=== PATIENT | male | born 1975 | race Caucasian/White ===

== ENCOUNTER 2016-08-07 08:42 | Emergency (ER) | payer OTHER ==
[2016-08-07 10:45] LABS: ABSOLUTE BASOPHILS # (AUTO) 0.1 10^3/uL (0.0-0.2); ABSOLUTE EOSINOPHILS # (AUTO) 0.3 10^3/uL (0.0-0.6); ABSOLUTE MONOCYTES (AUTO) 0.4 10^3/uL (0.1-1.4); BASOPHILS % (AUTO) 1.4 % (0-2); EOSINOPHILS % (AUTO) 4.2 % (0-6); HEMOGLOBIN 14.4 g/dL (13.5-17.0); HGB HCT DIFFERENCE 0.2; LYMPHOCYTES % (AUTO) 25.8 % (13-45); MEAN CORPUSCULAR HEMOGLOBIN 30.8 pg (27.0-33.4); MEAN CORPUSCULAR HGB CONC 33.5 g/dL (32.0-36.0); MEAN CORPUSCULAR VOLUME 92 fl (80-97); MONOCYTES % (AUTO) 5.5 % (3-13); RED BLOOD COUNT 4.67 10^6/uL (4.35-5.55); SEGMENTED NEUTROPHILS % (AUTO) 63.1 % (42-78); WHITE BLOOD COUNT 7.9 10^3/uL (4.0-10.5)
[2016-08-07 10:53] LABS: PROTHROMBIN TIME 13.4 SEC (11.4-15.4)
[2016-08-07 11:02] LABS: ANION GAP 10 (5-19); BLOOD UREA NITROGEN 20 mg/dL (7-20); CALCIUM 9.4 mg/dL (8.4-10.2); CARBON DIOXIDE 26 mmol/L (22-30); CHLORIDE 105 mmol/L (98-107); CREATININE RESULT 0.95 mg/dL (0.52-1.25); GLUCOSE 91 mg/dL (75-110); POTASSIUM 4.3 mmol/L (3.6-5.0); SODIUM 140.9 mmol/L (137-145)
--- NOTE | 2016-08-07 12:43 | XCELERA REPORT ---
[address] [address] Lower Extremity Venous Evaluation Name: ALESSIO JOHNSON Age: 40 yrs Gender: Male : 1975 Patient Status: Emergency Patient Location: ER Study Date: 08/07/2016 11:44 AM Procedure: Color flow and duplex imaging of the veins of the right lower extremity as well as the left Common Femoral vein. Reason For Study: right leg Ordering Physician: CHRIS RICHARDSON Performed By: Zaina Pagan Right Sided Venous Evaluation Enlarged SSV with no flow. Otherwise normal vessel filling wall to wall, compression and augmentation as well as Colour flow down to the infrageniculate veins. Left Sided Venous Evaluation The left common femoral vein is fully compressible. Spontaneous and phasic flow is present in the left common femoral vein. Critical Findings Celled in to Dr Carpenter in the ER at 1240. Interpretation Summary No duplex evidence of DVT or obstruction in the right lower extremity nor in the left Common Femoral vein. : CHRIS RICHARDSON > Ramez Farley
--- NOTE | 2016-08-07 13:01 | ER Document Report ---
ED General - General Chief Complaint: Leg Pain Stated Complaint: LEG PAIN Time Seen by Provider: 08/07/16 10:13 TRAVEL OUTSIDE OF THE [place] IN LAST 30 DAYS: No - HPI Patient complains to provider of: Right calf pain Notes: Patient is coming in today for evaluation of right calf pain. Patient has a history of DVT in the past and is currently on Pradaxa. Patient states he did just recently undergo a cross-country trip traveling. Patient states pain started approximately 3 days prior to arrival. Pain is in the posterior calf region minimal swelling. Patient denies any other injuries or trauma. - Related Data Allergies/Adverse Reactions: No Known Allergies Allergy (Verified 08/07/16 08:43) Past Medical History - Social History Smoking Status: Current Some Day Smoker Chew tobacco use (# tins/day): No Frequency of alcohol use: Rare Drug Abuse: None Family History: Reviewed & Not Pertinent Patient has suicidal ideation: No Patient has homicidal ideation: No - Past Medical History Cardiac Medical History: Reports: Hx DVT, Hx Pulmonary Embolism Renal/ Medical History: Denies: Hx Peritoneal Dialysis Psychiatric Medical History: Reports: Hx Depression Past Surgical History: Reports: Hx Bowel Surgery Review of Systems - Review of Systems Constitutional: No symptoms reported EENT: No symptoms reported Cardiovascular: No symptoms reported Respiratory: No symptoms reported Gastrointestinal: No symptoms reported Genitourinary: No symptoms reported Male Genitourinary: No symptoms reported Musculoskeletal: Other - Leg pain Skin: No symptoms reported Hematologic/Lymphatic: No symptoms reported Neurological/Psychological: No symptoms reported Physical Exam - Vital signs Vitals: Temp Pulse Resp BP Pulse Ox 98.3 F 60 16 124/75 99 08/07/16 08:43 08/07/16 08:43 08/07/16 08:43 08/07/16 08:43 08/07/16 08:43 Interpretation: Normal - General General appearance: Appears well, Alert - HEENT Head: Normocephalic, Atraumatic Eyes: Normal Pupils: PERRL - Respiratory Respiratory status: No respiratory distress Chest status: Nontender Breath sounds: Normal Chest palpation: Normal - Cardiovascular Rhythm: Regular Heart sounds: Normal auscultation Murmur: No - Abdominal Inspection: Normal Distension: No distension Bowel sounds: Normal Tenderness: Nontender Organomegaly: No organomegaly - Back Back: Normal, Nontender - Extremities General upper extremity: Normal inspection, Nontender, Normal color, Normal ROM , Normal temperature General lower extremity: Normal inspection, Tender - Palpation of the right Middle of the calf. No palpable cords no erythema, Normal color, Normal ROM, Normal temperature, Normal weight bearing. No: Alin's sign - Neurological Neuro grossly intact: Yes Cognition: Normal Orientation: AAOx4 Stacy Coma Scale Eye Opening: Spontaneous Mangum Coma Scale Verbal: Oriented Mangum Coma Scale Motor: Obeys Commands Stacy Coma Scale Total: 15 Speech: Normal Motor strength normal: LUE, RUE, LLE, RLE Sensory: Normal - Psychological Associated symptoms: Normal affect, Normal mood - Skin Skin Temperature: Warm Skin Moisture: Dry Skin Color: Normal Course - Re-evaluation Re-evalutation: 08/07/16 14:37 Ultrasound was performed showing superficial thrombophlebitis. Patient was given follow-up and will be discharged home - Vital Signs Vital signs: Temp Pulse Resp BP Pulse Ox 98.7 F 62 18 122/65 99 08/07/16 13:13 08/07/16 13:13 08/07/16 13:13 08/07/16 13:13 08/07/16 13:13 - Laboratory Result Diagrams: 08/07/16 10:30 08/07/16 10:30 Discharge - Discharge Clinical Impression: Superficial thrombophlebitis Qualifiers: Superficial thrombophlebitis-Involved body area: lower extremity Laterality: right Qualified Code(s): I80.01 - Phlebitis and thrombophlebitis of superficial vessels of right lower extremity Condition: Good Disposition: HOME, SELF-CARE Instructions: Superficial Phlebitis ([facility]) Additional Instructions: Continue your medications as previously prescribed follow-up with your doctor as needed return to the ER for any complications
[2016-08-07 13:14] VITALS: BP 122/65
== END 2016-08-07 13:13 | disposition home or self-care (01) ==
LOC: ER 08:42
DX: I80.01 Phlebitis and thrombophlebitis of superficial vessels of right lower extremity (principal); M79.661 Pain in right lower leg; F17.200 Nicotine dependence, unspecified, uncomplicated; Z86.718 Personal history of other venous thrombosis and embolism; Z86.711 Personal history of pulmonary embolism
CPT/HCPCS: 36415; 80048; 85025; 85610; 85730; 93971; 99284

== ENCOUNTER 2016-11-15 15:53 | Emergency (ER) | payer OTHER, MEDICARE ==
[2016-11-15] MEDS ORDERED: HYDROMORPHONE HCL INJ/PF 2 MG/ML AMPULE IV ONE ×3 (17:37→22:20)
[2016-11-15] MEDS ORDERED: NORMAL SALINE 1000 ML 1,000 ML IV ONE (17:39)
--- NOTE | 2016-11-15 17:44 | ER Document Report ---
ED Medical Screen (RME) - General Chief Complaint: Back Pain Stated Complaint: BACK PAIN Time Seen by Provider: 11/15/16 17:26 Notes: 41-year-old male with a history of chronic back pain presents emergency department for acutely worsening back pain over the past week associated with urinary retention starting this morning and a small amount of fecal incontinence starting last night. He had fever of 101.0 last night as well. Today he states he saw pain management and they prescribed him a steroid taper and ordered an MRI, the MRI was supposed to be at 4 PM this afternoon however he missed it due to having so much pain that he could not walk. Also complains that he is having numbness in his toes and weakness in his thighs due to pain. TRAVEL OUTSIDE OF THE [place] IN LAST 30 DAYS: No - Related Data Allergies/Adverse Reactions: No Known Allergies Allergy (Verified 08/07/16 08:43) Past Medical History - Social History Cigarette use (# per day): No Frequency of alcohol use: None Drug Abuse: None - Past Medical History Cardiac Medical History: Reports: Hx DVT, Hx Pulmonary Embolism Renal/ Medical History: Denies: Hx Peritoneal Dialysis Psychiatric Medical History: Reports: Hx Depression Past Surgical History: Reports: Hx Abdominal Surgery - hernia repair, Hx Bowel Surgery Physical Exam - Vital signs Vitals: Temp Pulse Resp BP Pulse Ox 98.6 F 129 H 22 H 118/79 98 11/15/16 16:21 11/15/16 16:21 11/15/16 16:21 11/15/16 16:21 11/15/16 16:21 Interpretation: Tachycardic, Tachypneic - Notes Notes: Appears uncomfortable, 5 out of 5 great toe raising strength bilaterally, sensation intact to the toes, tender to palpation over L2 and L3 in the midline , also has paraspinal muscle spasm. Course - Re-evaluation Re-evalutation: 11/15/16 17:44 Ordered stat MRI of the lumbar spine with and without as I am concerned for possible epidural abscess causing cauda equina. Discussed with TOMY Agarwal, he is aware of the potential diagnosis. - Vital Signs Vital signs: Temp Pulse Resp BP Pulse Ox 98.6 F 129 H 18 118/79 98 11/15/16 16:21 11/15/16 16:21 11/15/16 17:23 11/15/16 16:21 11/15/16 16:21
[2016-11-15 18:11] LABS: ABSOLUTE BASOPHILS # (AUTO) 0.1 10^3/uL (0.0-0.2); ABSOLUTE EOSINOPHILS # (AUTO) 0.1 10^3/uL (0.0-0.6); ABSOLUTE LYMPHOCYTES (AUTO) 0.9 10^3/uL (0.5-4.7); ABSOLUTE MONOCYTES (AUTO) 0.8 10^3/uL (0.1-1.4); ABSOLUTE NEUT (AUTO) 12.9 10^3/uL (1.7-8.2); BASOPHILS % (AUTO) 0.4 % (0-2); EOSINOPHILS % (AUTO) 0.5 % (0-6); HEMATOCRIT 43.1 % (37.9-51.0); HEMOGLOBIN 14.9 g/dL (13.5-17.0); HGB HCT DIFFERENCE 1.6; LYMPHOCYTES % (AUTO) 5.8 % (13-45); MEAN CORPUSCULAR HEMOGLOBIN 31.3 pg (27.0-33.4); MEAN CORPUSCULAR HGB CONC 34.5 g/dL (32.0-36.0); MEAN CORPUSCULAR VOLUME 91 fl (80-97); MONOCYTES % (AUTO) 5.1 % (3-13); RED BLOOD COUNT 4.75 10^6/uL (4.35-5.55); RED CELL DISTRIBUTION WIDTH 12.3 % (11.5-14.0); SEGMENTED NEUTROPHILS % (AUTO) 88.2 % (42-78); WHITE BLOOD COUNT 14.6 10^3/uL (4.0-10.5)
[2016-11-15 18:21] LABS: APPEARANCE,URINE SLIGHTLY-CLOUDY; BILIRUBIN,URINE NEGATIVE (NEGATIVE); GLUCOSE, URINE NEGATIVE (NEGATIVE); KETONES,URINE TRACE mg/dL (NEGATIVE); LEUKOCYTE ESTERASE,URINE NEGATIVE (NEGATIVE); NITRITE,URINE NEGATIVE (NEGATIVE); PROTEIN,URINE 100 mg/dL (NEGATIVE); URINE SPECIFIC GRAVITY 1.035
[2016-11-15 18:36] LABS: ALANINE AMINOTRANSFERASE 19 U/L (21-72); ALBUMIN 4.9 g/dL (3.5-5.0); ALKALINE PHOSPHATASE 99 U/L (38-126); ANION GAP 13 (5-19); ASPARTATE AMINO TRANSFERASE 26 U/L (17-59); BILIRUBIN,DIRECT 0.5 mg/dL (0.0-0.4); BLOOD UREA NITROGEN 20 mg/dL (7-20); CARBON DIOXIDE 27 mmol/L (22-30); CHLORIDE 100 mmol/L (98-107); CREATININE RESULT 1.01 mg/dL (0.52-1.25); GLUCOSE 137 mg/dL (75-110); POTASSIUM 4.5 mmol/L (3.6-5.0); SODIUM 139.8 mmol/L (137-145)
[2016-11-15 18:54] LABS: ERYTHROCYTE SEDIMENTATION RATE 38 mm/hr (0-15)
[2016-11-15 18:56] LABS: C-REACTIVE PROTEIN 161.3 mg/L (<10.0)
[2016-11-15] MEDS ORDERED: ONDANSETRON HCL INJ/PF 4 MG/2 ML SDV IV ONE (19:42)
--- NOTE | 2016-11-15 19:43 | ER Document Report ---
ED Neck/Back Problem - General Chief Complaint: Back Pain Stated Complaint: BACK PAIN Time Seen by Provider: 11/15/16 17:26 TRAVEL OUTSIDE OF THE [place] IN LAST 30 DAYS: No - Related Data Allergies/Adverse Reactions: No Known Allergies Allergy (Verified 08/07/16 08:43) Past Medical History - Social History Smoking Status: Former Smoker Cigarette use (# per day): No Frequency of alcohol use: None Drug Abuse: None Family History: Reviewed & Not Pertinent - Past Medical History Cardiac Medical History: Reports: Hx DVT, Hx Pulmonary Embolism Renal/ Medical History: Denies: Hx Peritoneal Dialysis Psychiatric Medical History: Reports: Hx Depression Past Surgical History: Reports: Hx Abdominal Surgery - hernia repair, Hx Bowel Surgery Physical Exam - Vital signs Vitals: Temp Pulse Resp BP Pulse Ox 98.6 F 129 H 22 H 118/79 98 11/15/16 16:21 11/15/16 16:21 11/15/16 16:21 11/15/16 16:21 11/15/16 16:21 Course - Re-evaluation Re-evalutation: 11/16/16 00:11 Patient is a 41-year-old male who is hemodynamic stable, no acute distress afebrile. Given patient's history of back pain with increased in severity today and referral from his pain management for an acute MRI one was ordered from triage. Please see full radiology report regarding findings. Does show evidence of severe degenerative changes MRI shows evidence of herniated disc at L4-L5, moderate to severe disc disease L5-S1 without evidence of spinal canal stenosis. Evidence of S1-S2 bulging disc with severe bilateral foraminal narrowing. Without evidence of spinal canal stenosis, cauda equina, epidural abscess without evidence of spinal canal stenosis, cauda equina, epidural abscess. After pain medication administration. Patient has been able to ambulate in the department with intact repeat neurological exams. Strength is 5 out of 5 bilateral lower extremities with sensation intact in all nerve distributions. The patient presents with low back pain without signs of spinal cord compression , cauda equina syndrome, infection, aneurysm, or other serious etiology. The patient is neurologically intact. Given the extremely low risk of these diagnoses further testing and evaluation for these possibilities does not appear to be indicated at this time. The patient has been instructed to return if the symptoms worsen or change in any way. - Vital Signs Vital signs: Temp Pulse Resp BP Pulse Ox 99.1 F 95 16 131/82 H 95 11/16/16 00:46 11/16/16 00:46 11/16/16 00:46 11/16/16 00:46 11/16/16 00:46 - Laboratory Result Diagrams: 11/15/16 17:50 11/15/16 17:50 Laboratory results interpreted by me: 11/15/16 11/15/16 11/15/16 17:50 17:50 17:50 WBC 14.6 H Seg Neutrophils % 88.2 H Lymphocytes % 5.8 L Absolute Neutrophils 12.9 H ESR 38 H Glucose 137 H Total Bilirubin 2.0 H Direct Bilirubin 0.5 H ALT 19 L C-Reactive Protein 161.3 H Total Protein 9.0 H Urine Protein 100 H Urine Ketones TRACE H Urine Blood MODERATE H Urine Urobilinogen 4.0 H - Diagnostic Test Radiology reviewed: Reports reviewed Discharge - Discharge 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 Most commonly the pain is due to straining of the muscles and ligaments in the low back. Usual treatment includes: (1) Rest on a firm surface. Avoid lying on your stomach. (2) Ice pack the painful area. After a few days, gentle heat may be used intermittently to relax the area, or ice packs can be continued. (3) Medication may be needed -- muscle relaxers and antiinflammatory medicines are commonly used. (4) As the back improves, exercises are prescribed to strengthen the back and abdominal muscles. Your doctor will advise you on the proper care for your back at each stage in your recovery. You may be better in a few days -- or healing may take several weeks. If new symptoms of a "herniated disc" (radiation of pain, numbness, or tingling down the back of the leg or weakness in the leg) occur, you should be re-examined. Further testing may be necessary. PAIN MEDICATION INJECTION: You have received an injection of a pain medication. You should experience significant pain relief within 45 minutes. If this injection was a narcotic -- it will impair your judgement, slow your reaction time and make you sleepy (as well as relieve your pain). Narcotics also can cause nausea. You should not drive, work with machinery, or perform any task requiring mental alertness until all effects of the medication are gone -- six to eight hours. Do not take any alcohol, or sedatives, and do not take any other medication without checking with your physician. ORAL NARCOTIC MEDICATION: You have been given a prescription for pain control. This medication is a narcotic. It's best taken with food, as nausea can result if taken on an empty stomach. Don't operate machinery or drive within six hours of taking this medication. Do not combine this medicine with alcohol, or with any medication which can cause sedation (such as cold tablets or sleeping pills) unless you get permission from the physician. Narcotics tend to cause constipation. If possible, drink plenty of fluids and eat a diet high in fiber and fruits. Please be aware that prescription narcotics also have the potential for abuse. People become addicted to these medications because of the general sense of wellbeing that they induce. This feeling along with a significant reduction in tension, anxiety, and aggression provides a stimulating seductive quality to these drugs. Once your pain is under control, we encourage you to discard your unused narcotics. MUSCLE RELAXERS: Muscle relaxing medications are usually prescribed for acute muscle spasm or injury to the neck and back. They are often combined with antiinflammatory pain medication for increased relief. You may stop the muscle relaxer when the pain and stiffness have improved. Start the medication again if spasms recur. Muscle relaxers may cause drowsiness, especially with the first dose. Do not operate machinery or drive while under the effects of the medication. Most muscle relaxers last up to 24 hours. Do not combine the medication with alcohol. ICE PACKS: Apply ice packs frequently against the painful area. Many different schedules are recommended, such as "20 minutes on, 20 minutes off" or "one hour ice, two hours rest." If you need to work, you may need to go longer between ice treatments. You should plan to have the area ice packed AT LEAST one fourth of the time. The ice should be applied over the wrap, tape, or splint, or over a layer of cloth -- not directly against the skin. Some ice bags have a built-in cloth and can be put directly on the skin. WARM PACKS: After approximately two days, apply gentle heat (such as a heating pad or hot water bottle) for about 20 to 30 minutes about every two hours -- at least four times daily. Warmth and elevation will help you make a more rapid recovery , and will ease the pain considerably. Do not use HOT heat, and never apply heat for longer than 30 minutes. The continuous heat can invisibly damage skin and muscles -- even when no burn is seen on the surface. Damaged muscles can make you MORE sore. FOLLOW-UP CARE: If you have been referred to a physician for follow-up care, call the physician s office for an appointment as you were instructed or within the next two days. If you experience worsening or a significant change in your symptoms, notify the physician immediately or return to the Emergency Department at any time for re-evaluation. Prescriptions: Oxycodone HCl/Acetaminophen [Percocet 10-325 Mg Tablet] 1 each PO Q6HP PRN #15 tablet PRN Reason: Cyclobenzaprine HCl [Flexeril 10 mg Tablet] 10 mg PO TIDP PRN #15 tab PRN Reason: Referrals: ROCIO BECERRA MD [Primary Care Provider] - Follow up as needed BERNIE BROWN MD [ACTIVE STAFF] - 11/18/16
--- NOTE | 2016-11-15 23:29 | RADIOLOGY REPORT (SQ) ---
EXAM DESCRIPTION: MRI THORACIC SPINE COMBO COMPLETED DATE/TIME: 11/15/2016 10:02 pm REASON FOR STUDY: urinary retent, fecal incont, fever COMPARISON: None. TECHNIQUE: Sagittal and Axial imaging includes T1, T2, STIR and gradient echo sequences. T1 post ga dolinium sequences. CONTRAST TYPE AND DOSE: 20 mL mL gadolinium base contrast. RENAL FUNCTION: None required. The patient is less than 50 years old. LIMITATIONS: None. FINDINGS: LOCALIZER: No worrisome findings. ALIGNMENT: Normal. VERTEBRAE: Intact. BONE MARROW: Normal. No marrow replacement or reactive changes. HARDWARE: None in the spine. CORD: Normal in size and signal intensity. SOFT TISSUES: No soft tissue masses. THORACIC DISCS T1-T12: Small central disc osteophyte T7-T8. No significant spinal stenosis or exit f oraminal stenosis. LOWER CERVICAL: Incompletely imaged. No significant spinal stenosis or exit foraminal stenosis. UPPER LUMBAR: Incompletely imaged. No significant spinal stenosis or exit foraminal stenosis. ENHANCEMENT: No abnormal enhancement. OTHER: No other significant finding. IMPRESSION: MILD DEGENERATIVE DISC DISEASE T7-T8 WITHOUT SIGNIFICANT SPINAL CANAL STENOSIS OR NEURAL FORAMINAL NARROWING. OTHERWISE UNREMARKABLE THORACIC SPINE MRI WITH AND WITHOUT CONTRAST. TECHNICAL DOCUMENTATION: JOB ID: [id number] [employer]- All Rights Reserved
--- NOTE | 2016-11-15 23:35 | RADIOLOGY REPORT (SQ) ---
EXAM DESCRIPTION: MRI LUMBAR SPINE COMBO COMPLETED DATE/TIME: 11/15/2016 10:02 pm REASON FOR STUDY: fever, urine retent, fecal incont, back pain COMPARISON: CORRELATION MADE TO CT FROM 10/27/2013 TECHNIQUE: Sagittal and Axial imaging includes T1, T1 post gadolinium, T2, STIR and gradient echo se quences. Coronal T2/HASTE imaging. CONTRAST TYPE AND DOSE: 20 ML mL NO ANY IN BASE CONTRAST RENAL FUNCTION: None required. The patient is less than 50 years old. LIMITATIONS: None. FINDINGS: VISUALIZED UPPER ABDOMEN: Limited evaluation. No acute or suspicious findings suggested. SEGMENTATION: THERE ARE 6 LUMBAR TYPE VERTEBRAL BODIES SECONDARY TO LUMBARIZATION OF THE S1 LEVEL. T HE LOWEST DEVELOPED DISC SPACE FOR THE PURPOSE OF THIS REPORT WILL BE REFERRED TO S1-S2. ALIGNMENT: Stable degree of anterolisthesis of S1 on S2. Alignment is otherwise normal VERTEBRAE: Intact. No fractures. BONE MARROW: Mild acute on chronic emboli changed S1-S2. Marrow signal is otherwise grossly normal. DISC SIGNAL: Disc desiccation L4-L5, L5-S1, and S1-S2. POSTERIOR ELEMENTS: Generally intact. No pars defect evident. HARDWARE: None in the spine. CORD AND CONUS: Normal in size and signal intensity. Conus at the appropriate level. SOFT TISSUES: No aortic aneurysm seen. No bulky retroperitoneal adenopathy or mass. No paraspinal mas s or fluid. L1-L2: No significant spinal stenosis or exit foraminal stenosis. L2-L3: No significant spinal stenosis or exit foraminal stenosis. L3-L4: No significant spinal stenosis or exit foraminal stenosis. L4-L5: Mild broad-based disc bulging and right-sided ligamentum flavum hypertrophy resulting in minim al effacement of the ventral thecal sac. No significant neural foraminal narrowing. L5-S1: Moderate to severe disc desiccation with broad-based bulging and superimposed central protrusi on which appears to contact of the bilateral and transiting S1 nerve roots within the subarticular re cess. There is additional mild bilateral neural foraminal narrowing. No high-grade spinal canal francia nosis. S1-S2: Severe disc desiccation with broad-based disc bulging. There is severe bilateral neural fora honey narrowing with impingement of the exiting S1 nerve roots. SACRUM: Visualized upper sacrum intact. ENHANCEMENT: No abnormal enhancement. OTHER: No other significant findings. IMPRESSION: DEGENERATIVE CHANGE DESCRIBED ABOVE MOST SEVERE AT THE L5-S1 AND S1-S2 LEVELS WITH GR JORGE 1 ANTEROLISTHESIS OF S1 ON S2 RESULTING IN SEVERE BILATERAL NEURAL FORAMINAL NARROWING AND IMPING EMENT OF THE EXITING S1 NERVE ROOTS. NO HIGH-GRADE SPINAL CANAL STENOSIS IDENTIFIED. TECHNICAL DOCUMENTATION: JOB ID: [id number] [employer]- All Rights Reserved
[2016-11-16] MEDS ORDERED: CYCLOBENZAPRINE HCL 10 MG TABLET PO ONE (00:11)
[2016-11-16] MEDS ORDERED: METHYLPREDNISOLONE INJ 125 MG/2 ML SDV IV ONE (00:11)
[2016-11-16] MEDS ORDERED: HYDROMORPHONE HCL INJ/PF 2 MG/ML AMPULE IV ONE (00:11)
[2016-11-16 01:02] VITALS: BP 131/82
== END 2016-11-16 01:03 | disposition home or self-care (01) ==
LOC: ER 15:53
DX: M47.816 Spondylosis without myelopathy or radiculopathy, lumbar region (principal); M51.26 Other intervertebral disc displacement, lumbar region; Z87.891 Personal history of nicotine dependence; Z86.711 Personal history of pulmonary embolism; Z86.718 Personal history of other venous thrombosis and embolism
CPT/HCPCS: 96376; 99284; 96361; 96374; 96375; 36415; 85025; 85652; 86140; 80053; 81001; 83605; 72157; 72158; A9577; J2930; J1170 ×2; J2405; J7030

== ENCOUNTER 2016-11-17 11:31 | Emergency (ER) | payer OTHER, MEDICARE ==
--- NOTE | 2016-11-17 12:03 | ER Document Report ---
ED Medical Screen (RME) - General Chief Complaint: Low Back Pain Stated Complaint: LOW BACK PAIN Time Seen by Provider: 11/17/16 11:50 Mode of Arrival: Wheelchair Information source: Patient TRAVEL OUTSIDE OF THE [place] IN LAST 30 DAYS: No - HPI Patient complains to provider of: Low back pain, lower extremity swelling Notes: 11/17/16 12:02 Patient is a 41-year-old male with a history of chronic low back pain, was seen in this department approximately 2 days ago and had MRIs of the thoracic and lumbar spine showing multilevel degenerative changes, over the past few days his pain is gotten worse with pain shooting down both legs, he is also having increased swelling in both legs, patient reports a history of DVT and is currently on Pradaxa - Related Data Allergies/Adverse Reactions: No Known Allergies Allergy (Verified 11/17/16 11:39) Past Medical History - Social History Chew tobacco use (# tins/day): No Frequency of alcohol use: None Drug Abuse: None - Past Medical History Cardiac Medical History: Reports: Hx DVT, Hx Pulmonary Embolism Renal/ Medical History: Denies: Hx Peritoneal Dialysis Psychiatric Medical History: Reports: Hx Depression Past Surgical History: Reports: Hx Abdominal Surgery - hernia repair, Hx Bowel Surgery - Immunizations Hx Diphtheria, Pertussis, Tetanus Vaccination: Yes Physical Exam - Vital signs Vitals: Pulse Resp BP Pulse Ox 106 H 16 145/97 H 97 11/17/16 11:39 11/17/16 11:39 11/17/16 11:39 11/17/16 11:39 Course - Vital Signs Vital signs: Temp Pulse Resp BP Pulse Ox 106 H 16 145/97 H 97 11/17/16 11:39 11/17/16 11:39 11/17/16 11:39 11/17/16 11:39
[2016-11-17 12:30] LABS: ABSOLUTE BASOPHILS # (AUTO) 0.1 10^3/uL (0.0-0.2); ABSOLUTE EOSINOPHILS # (AUTO) 0.1 10^3/uL (0.0-0.6); ABSOLUTE LYMPHOCYTES (AUTO) 1.5 10^3/uL (0.5-4.7); ABSOLUTE MONOCYTES (AUTO) 1.2 10^3/uL (0.1-1.4); ABSOLUTE NEUT (AUTO) 15.7 10^3/uL (1.7-8.2); BASOPHILS % (AUTO) 0.3 % (0-2); EOSINOPHILS % (AUTO) 0.5 % (0-6); HEMATOCRIT 38.7 % (37.9-51.0); HEMOGLOBIN 13.8 g/dL (13.5-17.0); HGB HCT DIFFERENCE 2.7; LYMPHOCYTES % (AUTO) 8.2 % (13-45); MEAN CORPUSCULAR HEMOGLOBIN 31.8 pg (27.0-33.4); MEAN CORPUSCULAR HGB CONC 35.6 g/dL (32.0-36.0); MEAN CORPUSCULAR VOLUME 89 fl (80-97); MONOCYTES % (AUTO) 6.7 % (3-13); RED BLOOD COUNT 4.33 10^6/uL (4.35-5.55); RED CELL DISTRIBUTION WIDTH 12.5 % (11.5-14.0); SEGMENTED NEUTROPHILS % (AUTO) 84.3 % (42-78); WHITE BLOOD COUNT 18.6 10^3/uL (4.0-10.5)
[2016-11-17 12:35] LABS: PROTHROMBIN TIME 17.5 SEC (11.4-15.4)
[2016-11-17 12:36] LABS: PARTIAL THROMBOPLASTIN TIME 46.3 SEC (23.5-35.8)
[2016-11-17 12:46] LABS: ALANINE AMINOTRANSFERASE 37 U/L (21-72); ALBUMIN 4.5 g/dL (3.5-5.0); ALKALINE PHOSPHATASE 77 U/L (38-126); ANION GAP 13 (5-19); ASPARTATE AMINO TRANSFERASE 21 U/L (17-59); BILIRUBIN,DIRECT 0.5 mg/dL (0.0-0.4); BILIRUBIN,TOTAL 0.8 mg/dL (0.2-1.3); BLOOD UREA NITROGEN 31 mg/dL (7-20); CALCIUM 9.7 mg/dL (8.4-10.2); CARBON DIOXIDE 24 mmol/L (22-30); CHLORIDE 101 mmol/L (98-107); GLUCOSE 120 mg/dL (75-110); POTASSIUM 4.1 mmol/L (3.6-5.0); SODIUM 137.9 mmol/L (137-145)
--- NOTE | 2016-11-17 13:10 | ER Document Report ---
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 Patient has a long history of back pain and states that he started having a fever last week (on Friday, 4 days ago). He started taking his own amoxicillin at home. He presented 2 days ago with worsening back pain and numbness to the lower extremities. He had an MRI of the thoracic and lumbar spine with and without contrast that showed severe degenerative changes, without any evidence of epidural abscess. 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 Past surgical history: Bowel obstruction, hernia with mesh, IVC filter. Social: Patient did smoke cigarettes up to 1-1/2 weeks ago TRAVEL OUTSIDE OF THE [place] IN LAST 30 DAYS: No - HPI Onset: Last week Onset/Duration: Gradual Quality of pain: Dull Severity: Moderate Pain Level: 3 Associated symptoms: Fever. denies: Chills, Shortness of breath Exacerbated by: Movement Relieved by: Denies Similar symptoms previously: Yes Recently seen / treated by doctor: Yes - Related Data Allergies/Adverse Reactions: No Known Allergies Allergy (Verified 11/17/16 11:39) Past Medical History - General Information source: Patient - Social History Smoking Status: Current Some Day Smoker Chew tobacco use (# tins/day): No Frequency of alcohol use: None Drug Abuse: None Family History: Reviewed & Not Pertinent Patient has suicidal ideation: No Patient has homicidal ideation: No - Past Medical History Cardiac Medical History: Reports: Hx DVT, Hx Pulmonary Embolism Renal/ Medical History: Denies: Hx Peritoneal Dialysis Psychiatric Medical History: Reports: Hx Depression Past Surgical History: Reports: Hx Abdominal Surgery - hernia repair, Hx Bowel Surgery - Immunizations Hx Diphtheria, Pertussis, Tetanus Vaccination: Yes Review of Systems - Review of Systems Constitutional: Fever EENT: No symptoms reported Cardiovascular: See HPI Respiratory: No symptoms reported Gastrointestinal: No symptoms reported Genitourinary: No symptoms reported Male Genitourinary: No symptoms reported Musculoskeletal: See HPI Skin: See HPI Hematologic/Lymphatic: No symptoms reported Neurological/Psychological: No symptoms reported Physical Exam - Vital signs Vitals: Pulse Resp BP Pulse Ox 106 H 16 145/97 H 97 11/17/16 11:39 11/17/16 11:39 11/17/16 11:39 11/17/16 11:39 Notes: Physical exam: GENERAL: 41-year-old man, alert and oriented 3, appears uncomfortable HEAD: Atraumatic, normocephalic. EYES: Pupils equal round and reactive to light, extraocular movements intact, sclera anicteric, conjunctiva are normal. ENT: oropharynx clear without exudates. Moist mucous membranes. NECK: Normal range of motion, supple without obvious mass or JVD. LUNGS: Breath sounds clear to auscultation bilaterally and equal. No wheezes rales or rhonchi. HEART: Regular rate and rhythm without murmurs, rubs or gallops. ABDOMEN: Soft, normoactive bowel sounds. No tenderness to palpation. No guarding, no rebound. No masses appreciated. EXTREMITIES: Patient has swelling to both lower extremities which involves the whole extremity. The skin is tense. The extremities are symmetric. There is A refill. There is a hue to the lower extremities to suggest venous engorgement. He does have palpable pulses. NEUROLOGICAL: Cranial nerves II through XII grossly intact. Normal speech, moving all extremities. Patient has a broad-based gait: He says it is uncomfortable when he tries to walk. PSYCH: Normal mood, normal affect. SKIN: As noted above under the extremity exam. Course - Re-evaluation Re-evalutation: 11/17/16 15:39 I initially discussed the case with Dr. Johnson to review the MRI from 2 days ago. She was able to see that the patient had an IVC clot on the MRI. At that point, IV heparin was ordered. Lower extremity Dopplers do show bilateral DVTs. The DVT on the right extends from the common femoral and the groin into the femoral and ends just above the right knee. The DVT on the left extends from the common femoral and the groin through the femoral and into popliteal. CT of the abdomen shows that the clot extends into the IVC and above the IVC filter and ends just below the renal veins. So the clot burden is extensive. I discussed the case with Dr. sadler (interventional radiologist) who recommended catheter ablated thrombo-lysis which he does perform at [facility]. I have contacted [facility] about the possibility of transfer. Currently, the patient is hemodynamically stable and is on IV heparin at this time. Spot checks of his arteries revealed good arterial supply to the lower extremities bilaterally. 11/17/16 19:03 I have discussed management with [facility] casting finisher who recommends transfer to a larger institution given the extent of clot. I did discuss the case with Dr. Rios ([facility] surg) at [facility] and he is willing to accept the patient but there are no beds. I discussed the case with Dr. Fleming ([facility] ) at [facility] and I presented the case to [facility] and both these facilities are willing to accept the patient. [facility] is willing to have the patient go ER to ER and evaluate the patient in the ER. It is not clear whether [facility] has a bed at this time. I discussed the issue with the patient and his family and they would prefer to go to [facility]. The patient continues on IV heparin and his vital signs have been stable. - Vital Signs Vital signs: Temp Pulse Resp BP Pulse Ox 106 H 20 131/90 H 94 11/17/16 11:39 11/17/16 18:01 11/17/16 18:01 11/17/16 18:01 - Laboratory Result Diagrams: 11/17/16 12:16 11/17/16 12:16 Laboratory results interpreted by me: 11/17/16 11/17/16 11/17/16 12:16 12:16 12:16 WBC 18.6 H RBC 4.33 L Seg Neutrophils % 84.3 H Lymphocytes % 8.2 L Absolute Neutrophils 15.7 H PT 17.5 H APTT 46.3 H BUN 31 H Glucose 120 H Direct Bilirubin 0.5 H Urine Blood 11/17/16 15:50 WBC RBC Seg Neutrophils % Lymphocytes % Absolute Neutrophils PT APTT BUN Glucose Direct Bilirubin Urine Blood MODERATE H - Diagnostic Test Radiology reviewed: Image reviewed, Reports reviewed - The lower extremity Dopplers showed bilateral DVTs extending from common femoral to just above the knee on the right. The left side showed a common femoral DVT extending down beyond the popliteal. Critical Care Note - Critical Care Note Total time excluding time spent on procedures (mins): 110 Discharge - Discharge Clinical Impression: Extensive DVT Condition: Serious Disposition: [facility]
[2016-11-17] MEDS ORDERED: MORPHINE SULFATE 10 MG/ML INJ IV ONE (13:15)
[2016-11-17] MEDS ORDERED: ONDANSETRON HCL INJ/PF 4 MG/2 ML SDV IV ONE (13:16)
[2016-11-17] MEDS ORDERED: HEPARIN SOD (PORCINE) 1,000 UNIT/ML 10 ML VIAL IV PRN (13:24)
[2016-11-17] MEDS ORDERED: HEPARIN SOD (PORCINE) 1,000 UNIT/ML 10 ML VIAL IV ONE (13:24)
[2016-11-17] MEDS ORDERED: HEPARIN SODIUM,PORCINE/D5W 25,000 UNIT/250 ML RTUINJ IV PRN (14:09)
[2016-11-17] MEDS ORDERED: HEPARIN SODIUM,PORCINE/D5W 25,000 UNIT/250 ML RTUINJ IV ONE (14:15)
--- NOTE | 2016-11-17 15:31 | RADIOLOGY REPORT (SQ) ---
EXAM DESCRIPTION: CT ABD/PELVIS WITH IV ONLY COMPLETED DATE/TIME: 11/17/2016 2:44 pm REASON FOR STUDY: abd pain COMPARISON: MRI lumbar spine 11/15/2016 TECHNIQUE: CT scan of the abdomen and pelvis performed using helical scanning technique with dynamic intravenous contrast injection. No oral contrast. Images reviewed with lung, soft tissue, and bone windows. Reconstructed coronal and sagittal MPR images reviewed. Delayed images for evaluation of the urinary system also acquired. All images stored on PACS. All CT scanners at this facility use dose modulation, iterative reconstruction, and/or weight based d osing when appropriate to reduce radiation dose to as low as reasonably achievable (ALARA). [facility]: Dose Right [facility]: CareDose [facility]: Dose Right [facility]: Teradose 4D [facility]: [employer] CONTRAST TYPE AND DOSE: contrast/concentration: Isovue 370.00 mg/ml; Total Contrast Delivered: 99.0 ml; Total Saline Delivered: 54.0 ml RENAL FUNCTION: Creatinine 1.0 RADIATION DOSE: Up-to-date CT equipment and radiation dose reduction techniques were employed. CTDIv ol: 15.1 - 20.0 mGy. DLP: 1985 mGy-cm.. LIMITATIONS: None. FINDINGS: There is occlusive thrombosis of the bilateral common femoral, external iliac, common missael c veins, with occlusive thrombus in the inferior vena cava. Patient does have any infrarenal IVC helder ter which is filled with clot. Clot extends superior to the filter by 7 cm, up to the level of the r enal veins. Renal veins, upper abdominal vena cava, hepatic vena cava patent. These findings were discussed with Dr. Castorena. LOWER CHEST: Bibasilar atelectasis is present. LIVER: Normal size. No masses. No dilated ducts. SPLEEN: Normal size. No focal lesions. PANCREAS: No masses. No significant calcifications. No adjacent inflammation or peripancreatic fluid collections. Pancreatic duct not dilated. GALLBLADDER: No identified stones by CT criteria. No inflammatory changes to suggest cholecystitis. ADRENAL GLANDS: No significant masses or asymmetry. RIGHT KIDNEY AND URETER: No solid masses. No significant calcifications. No hydronephrosis or hyd roureter. LEFT KIDNEY AND URETER: No solid masses. No significant calcifications. No hydronephrosis or hydr oureter. AORTA AND VESSELS: As above. RETROPERITONEUM: There is edema in the deep pelvic fat in the presacral region, likely due to the IVC thrombosis. BOWEL AND PERITONEAL CAVITY: No masses or inflammatory changes. No free fluid or peritoneal masses. APPENDIX: Normal. PELVIS: No mass. No free fluid. Normal bladder. ABDOMINAL WALL: No masses. No hernias. BONES: No significant or acute findings. OTHER: No other significant finding. IMPRESSION: Occlusive thrombosis of the bilateral common femoral, external iliac, common iliac veins , and inferior vena cava. Clot extends superior to the inferior vena cava filter by about 7 cm, up t o the level of the renal veins. No renal vein thrombosis. TECHNICAL DOCUMENTATION: JOB ID: [id number] Quality ID # [id number]: Final reports with documentation of one or more dose reduction techniques (e.g., Au tomated exposure control, adjustment of the mA and/or kV according to patient size, use of iterative reconstruction technique) 2010 [employer]- All Rights Reserved
[2016-11-17 16:15] LABS: APPEARANCE,URINE CLEAR; BILIRUBIN,URINE NEGATIVE (NEGATIVE); GLUCOSE, URINE NEGATIVE (NEGATIVE); KETONES,URINE NEGATIVE (NEGATIVE); LEUKOCYTE ESTERASE,URINE NEGATIVE (NEGATIVE); NITRITE,URINE NEGATIVE (NEGATIVE); PROTEIN,URINE NEGATIVE (NEGATIVE); URINE SPECIFIC GRAVITY 1.041; UROBILINOGEN,URINE NEGATIVE mg/dL (<2.0)
[2016-11-17 16:28] LABS: WBC,URINE 0-1 /HPF
[2016-11-17] MEDS ORDERED: MORPHINE SULFATE 10 MG/ML INJ IV PRN (17:05)
[2016-11-17] MEDS ORDERED: NICOTINE 14 MG/24 HR PATCH.TD24 TD ONE (17:06)
[2016-11-17 18:12] VITALS: BP 131/90
[2016-11-17] MEDS ORDERED: ALPRAZOLAM 0.5 MG TABLET PO ONE (18:59)
--- NOTE | 2016-11-18 08:06 | XCELERA REPORT ---
[address] [address] Lower Extremity Venous Evaluation Name: ALESSIO JOHNSON Age: 41 yrs Gender: Male : 1975 Patient Status: Emergency Patient Location: ER Study Date: 11/17/2016 01:52 PM Procedure: Color flow and duplex imaging bilaterally of the veins of the lower extremities as well as the Common Femoral veins. Reason For Study: BL LE swelling/pain Ordering Physician: JENI WILSON Performed By: Mynor Ortiz Right Sided Venous Evaluation Abnormal vessel filling, enlargement, no compression or Colour flow in the Common Femoral, Femoral veins. Left Sided Venous Evaluation Abnormal vessel filling, enlargement, no compression or Colour flow in the Common Femoral, Femoral, Popliteal, and one of two Posterior Tibial veins. Critical Findings Discussed with Dr Castorena, particularly possibility of proximal involvement. Interpretation Summary Bilateral, acute, quite extensive DVT. : JENI WILSON > Ramez Farley
== END 2016-11-17 19:42 | disposition short-term general hospital (02) ==
LOC: ER 11:31
DX: I82.413 Acute embolism and thrombosis of femoral vein, bilateral (principal); I10 Essential (primary) hypertension; M54.5 Low back pain; R10.2 Pelvic and perineal pain; M79.89 Other specified soft tissue disorders; R50.9 Fever, unspecified; F17.200 Nicotine dependence, unspecified, uncomplicated; Z86.718 Personal history of other venous thrombosis and embolism; Z79.02 Long term (current) use of antithrombotics/antiplatelets
CPT/HCPCS: 99291; 99292; 96374; 96375; 36415; 85025; 85610; 85730; 80053; 81001; 93970 ×2; 74177; J1644 ×2; J2270; J2405

== ENCOUNTER 2016-12-02 10:46 | Emergency (ER) | payer OTHER, MEDICARE ==
--- NOTE | 2016-12-02 11:28 | ER Document Report ---
ED Medical Screen (RME) - General Chief Complaint: Leg Pain Stated Complaint: LEG PAIN/SWELLING Time Seen by Provider: 12/02/16 11:27 Notes: Patient has a history of DVTs. He has IVC filter. He recently had 2 stents placed in each lower extremity because of extensive DVTs. He is currently on Lovenox and warfarin. He comes in now because he is having some pain in his left leg, is having trouble walking, and he felt that there is discoloration. On my exam patient has a 2+ dorsalis pedis pulse on the left. TRAVEL OUTSIDE OF THE [place] IN LAST 30 DAYS: No - Related Data Allergies/Adverse Reactions: No Known Allergies Allergy (Verified 12/02/16 10:50) Past Medical History - Social History Chew tobacco use (# tins/day): No Frequency of alcohol use: None Drug Abuse: None - Past Medical History Cardiac Medical History: Reports: Hx DVT, Hx Pulmonary Embolism Renal/ Medical History: Denies: Hx Peritoneal Dialysis Psychiatric Medical History: Reports: Hx Depression Past Surgical History: Reports: Hx Abdominal Surgery - hernia repair, Hx Bowel Surgery, Hx Vascular Surgery - stents tristan legs r/t DVT - Immunizations Hx Diphtheria, Pertussis, Tetanus Vaccination: Yes Physical Exam - Vital signs Vitals: Resp 18 12/02/16 10:50 Course - Vital Signs Vital signs: Temp Pulse Resp BP Pulse Ox 98.2 F 83 18 120/82 99 12/02/16 10:53 12/02/16 10:53 12/02/16 10:50 12/02/16 10:53 12/02/16 10:53
[2016-12-02 12:13] LABS: PROTHROMBIN TIME 15.4 SEC (11.4-15.4)
--- NOTE | 2016-12-02 13:27 | ER Document Report ---
ED General - General Mode of Arrival: Ambulatory Information source: Patient TRAVEL OUTSIDE OF THE [place] IN LAST 30 DAYS: No - HPI Onset: Other - see narrative Similar symptoms previously: Yes Recently seen / treated by doctor: Yes - General Chief Complaint: Leg Pain Stated Complaint: LEG PAIN/SWELLING Time Seen by Provider: 12/02/16 11:27 Notes: Patient is a 41-year-old male who presents to the emergency department today with complaints of left calf pain and subjective swelling. Patient has a history of multiple DVTs in the past. Patient was admitted to [facility] 1.5 weeks ago secondary to bilateral DVTs. Patient developed these DVTs despite being on Pradaxa. Patient was started on Lovenox and Coumadin with the idea that the Lovenox would be stopped once the Coumadin reached therapeutic levels. Patient was subtherapeutic at 1.1 at his checkup one week ago so he was told to take 10 mg of Coumadin the next 2 days and then go back to his daily 5 mg Coumadin. Patient states he gets mildly nauseated with the pain. Patient denies any chest pain or shortness of breath. Patient states his right lower extremity is not causing him any pain. (LINDA RIVERA) - Related Data Allergies/Adverse Reactions: No Known Allergies Allergy (Verified 12/02/16 10:50) Past Medical History - General Information source: Patient - Social History Smoking Status: Never Smoker Cigarette use (# per day): No Chew tobacco use (# tins/day): No Frequency of alcohol use: None Drug Abuse: None Lives with: Family Family History: Reviewed & Not Pertinent Patient has suicidal ideation: No - Past Medical History Cardiac Medical History: Reports: Hx DVT, Hx Pulmonary Embolism Psychiatric Medical History: Reports: Hx Depression Past Surgical History: Reports: Hx Abdominal Surgery - hernia repair, Hx Bowel Surgery, Hx Vascular Surgery - stents tristan legs r/t DVT - Immunizations Hx Diphtheria, Pertussis, Tetanus Vaccination: Yes Review of Systems - Review of Systems Constitutional: See HPI, Other - Subtherapeutic INR EENT: No symptoms reported Cardiovascular: denies: Chest pain Respiratory: denies: Short of breath Gastrointestinal: No symptoms reported Genitourinary: No symptoms reported Male Genitourinary: No symptoms reported Musculoskeletal: See HPI, Other - Left calf pain and subjective swelling Skin: No symptoms reported Hematologic/Lymphatic: No symptoms reported Neurological/Psychological: No symptoms reported -: Yes All other systems reviewed and negative Physical Exam - Vital signs Vitals: Resp 18 12/02/16 10:50 - Notes Notes: Physical Exam: General: Alert, appears well. HEENT: Normocephalic. Atraumatic. PERRL. Extraocular movements intact. Oropharynx clear. Neck: Supple. Non-tender. Respiratory: No respiratory distress. Clear and equal breath sounds bilaterally. Cardiovascular: Regular rate and rhythm. Abdominal: Normal Inspection. Non-tender. No distension. Normal Bowel Sounds. Back: Non-tender. No deformity or step off. Extremities: Moves all four extremities. Upper extremities: Normal inspection. Normal ROM. Lower extremities: Normal inspection. Calves are symmetric in size, no calf tenderness with palpation. No edema. Normal ROM. Neurological: Normal cognition. AAOx4. Normal speech. Psychological: Normal affect. Normal Mood. Skin: Warm. Dry. Normal color. (LINDA RIVERA) Course - Re-evaluation Re-evalutation: 12/02/16 13:28 Pleasant 41-year-old male with a history of a coagulopathy, DVTs. He was recently treated at [facility] and was discharged on Lovenox as well as 5 mg of Coumadin. He was rechecked recently and had an INR of 1.1. The physician who is caring for him then increased his Coumadin dose to 10 for 2 days and then resuming 5. Today he presents emergency department because of discomfort to the left leg and his INR is noted to be 1.14. I have counseled the patient to increase his Coumadin dose to 7.5 mg once per day and to follow-up with his physician at the [facility] this or Friday for reevaluation. Patient otherwise appears well. He has no chest pain or shortness of breath. No indication for repeat ultrasound at this time. Patient agrees and understands. (LUIS FERNANDO ROBERTO) - Vital Signs Vital signs: Temp Pulse Resp BP Pulse Ox 97.3 F 65 18 112/66 100 12/02/16 14:09 12/02/16 14:09 12/02/16 10:50 12/02/16 14:09 12/02/16 14:09 Discharge - Discharge Clinical Impression: Anticoagulant long-term use DVT (deep venous thrombosis) Qualifiers: DVT location: lower extremity Affected thrombotic vein of extremity: unspecified vein of extremity Chronicity: chronic Laterality: bilateral Qualified Code(s): I82.503 - Chronic embolism and thrombosis of unspecified deep veins of lower extremity, bilateral Condition: Good Disposition: HOME, SELF-CARE Instructions: Coumadin (warfarin) ([facility]) Additional Instructions: Your INR today is 1.14. You are taking 5 mg of Coumadin currently. Increase this to to 7.5 mg once per day. We discussed the importance of reevaluation in 3-5 days. Please follow-up with your doctors at the [facility] for this. Continue your Lovenox until we know you are therapeutic with Coumadin. Return to the emergency department if you have worsening pain, if you develop chest pain or shortness of breath, or if you have other urgent concerns. Lorenzo Attestation: 12/02/16 19:37 I personally performed the services described in the documentation, reviewed and edited the documentation which was dictated to the scribe in my presence, and it accurately records my words and actions. (LUIS FERNANDO ROBERTO) Gabrielaibe Documentation - Scribe Written by Lorenzo:: Lorenzo Cleveland, 12/02/2016 1358 acting as scribe for :: Angel
[2016-12-02 14:18] VITALS: BP 112/66
== END 2016-12-02 14:17 | disposition home or self-care (01) ==
LOC: ER 10:46
DX: I82.503 Chronic embolism and thrombosis of unspecified deep veins of lower extremity, bilateral (principal); M79.605 Pain in left leg; M79.89 Other specified soft tissue disorders; Z79.01 Long term (current) use of anticoagulants
CPT/HCPCS: 36415; 85610; 99283

== ENCOUNTER 2017-08-18 14:27 | Emergency (ER) | payer OTHER, MEDICARE ==
[2017-08-18 14:54] VITALS: BP 133/86
--- NOTE | 2017-08-18 15:28 | RADIOLOGY REPORT (SQ) ---
EXAM DESCRIPTION: HAND RIGHT 3 VIEWS COMPLETED DATE/TIME: 08/18/2017 2:46 pm REASON FOR STUDY: stung by sting ray COMPARISON: None. EXAM PARAMETERS: NUMBER OF VIEWS: Three views. TECHNIQUE: AP, lateral and oblique radiographic images acquired of the right hand. LIMITATIONS: None. FINDINGS: MINERALIZATION: Normal. BONES: No acute fracture or dislocation. No worrisome bone lesions. JOINTS: No effusions. SOFT TISSUES: Soft tissue swelling. No radiopaque foreign body. OTHER: No other significant finding. IMPRESSION: NEGATIVE STUDY OF THE RIGHT HAND. NO RADIOGRAPHIC EVIDENCE OF ACUTE INJURY. TECHNICAL DOCUMENTATION: JOB ID: [id number] [employer]- All Rights Reserved Reading location - IP/workstation name: [email or web address]
[2017-08-18] MEDS ORDERED: IBUPROFEN 800 MG TABLET PO ONE (16:17)
[2017-08-18] MEDS ORDERED: DIPH/PERTUSS(ACELL)/TETANUS VAC/PF 0.5 ML SYR (>=10YO) IM ONE (17:01)
--- NOTE | 2017-08-18 17:07 | ER Document Report ---
ED General - General Chief Complaint: Hand Injury Stated Complaint: HAND INJURY Time Seen by Provider: 08/18/17 16:07 Mode of Arrival: Ambulatory Information source: Patient Notes: 41-year-old male presents with stingray injury to the right hand just prior to arrival. Patient denies any other complaints denies any fevers chills TRAVEL OUTSIDE OF THE [place] IN LAST 30 DAYS: No - HPI Onset: Just prior to arrival Onset/Duration: Sudden Quality of pain: Sharp Severity: Moderate Pain Level: 3 Associated symptoms: Other Exacerbated by: Movement Relieved by: Denies Similar symptoms previously: No Recently seen / treated by doctor: No - Related Data Allergies/Adverse Reactions: No Known Allergies Allergy (Verified 12/20/16 12:02) Past Medical History - Social History Smoking Status: Current Every Day Smoker Cigarette use (# per day): Yes Chew tobacco use (# tins/day): No Smoking Education Provided: No Frequency of alcohol use: None Drug Abuse: None Family History: Reviewed & Not Pertinent Patient has suicidal ideation: No Patient has homicidal ideation: No - Past Medical History Cardiac Medical History: Reports: Hx DVT, Hx Pulmonary Embolism Renal/ Medical History: Denies: Hx Peritoneal Dialysis Psychiatric Medical History: Reports: Hx Depression Past Surgical History: Reports: Hx Abdominal Surgery - hernia repair, Hx Bowel Surgery, Hx Vascular Surgery - stents tristan legs r/t DVT - Immunizations Hx Diphtheria, Pertussis, Tetanus Vaccination: Yes Review of Systems - Review of Systems Notes: REVIEW OF SYSTEMS: CONSTITUTIONAL : Denies fever, chills, or sweats. Denies recent illness. EENT: Denies eye, ear, throat, or mouth pain or symptoms. Denies nasal or sinus congestion or discharge. Denies throat, tongue, or mouth swelling or difficulty swallowing. CARDIOVASCULAR: Denies chest pain. Denies palpitations or racing or irregular heart beat. Denies ankle edema. RESPIRATORY: Denies cough, cold, or chest congestion. Denies shortness of breath, difficulty breathing, or wheezing. GASTROINTESTINAL: Denies abdominal pain or distention. Denies nausea, vomiting , or diarrhea. Denies blood in vomitus, stools, or per rectum. Denies black, tarry stools. Denies constipation. GENITOURINARY: Denies difficulty urinating, painful urination, burning, frequency, blood in urine, or discharge. MUSCULOSKELETAL: Denies back or neck pain or stiffness. Denies joint pain or swelling. SKIN: Admits to puncture wound to the hand HEMATOLOGIC : Denies easy bruising or bleeding. LYMPHATIC: Denies swollen, enlarged glands. NEUROLOGICAL: Denies confusion or altered mental status. Denies passing out or loss of consciousness. Denies dizziness or lightheadedness. Denies headache. Denies weakness or paralysis or loss of use of either side. Denies problems with gait or speech. Denies sensory loss, numbness, or tingling. Denies seizures. PSYCHIATRIC: Denies anxiety or stress. Denies depression, suicidal ideation, or homicidal ideation. ALL OTHER SYSTEMS REVIEWED AND NEGATIVE. Dictation was performed using [employer] voice recognition software PHYSICAL EXAMINATION: GENERAL: Well-appearing, well-nourished and in moderate acute distress. HEAD: Atraumatic, normocephalic. EYES: Pupils equal round and reactive to light, extraocular movements intact, sclera anicteric, conjunctiva are normal. ENT: Nares patent, oropharynx clear without exudates. Moist mucous membranes. NECK: Normal range of motion, supple without lymphadenopathy LUNGS: Breath sounds clear to auscultation bilaterally and equal. No wheezes rales or rhonchi. HEART: Regular rate and rhythm without murmurs ABDOMEN: Soft, nontender, nondistended abdomen. No guarding, no rebound. No masses appreciated. Musculoskeletal: Normal range of motion, no pitting or edema. No cyanosis. NEUROLOGICAL: Cranial nerves grossly intact. Normal speech, normal gait. Normal sensory, motor exams PSYCH: Normal mood, normal affect. SKIN: Jagged W-shaped laceration measuring 1 cm on the dorsal right hand at the base of the fifth digit Physical Exam - Vital signs Vitals: Temp Pulse Resp BP 97.7 F 89 18 133/86 H 08/18/17 14:52 08/18/17 14:52 08/18/17 14:52 08/18/17 14:52 Course - Re-evaluation Re-evalutation: 08/18/17 18:32 Patient has full range of motion looks well was immediately placed inhot water, notes improvement of symptoms, pt notes he twisted his ankle running away from the sting ray. pt denies any other concerns will dc home After performing a Medical Screening Examination, I estimate there is LOW risk for OPEN FRACTURE, COMPARTMENT SYNDROME, TENDON RUPTURE, ACUTE NEUROVASCULAR INJURY, or RETAINED FOREIGN BODY, thus I consider the discharge disposition reasonable. Also, there is no evidence or peritonitis, sepsis, or toxicity. I have reevaluated this patient multiple times and no significant life threatening changes are noted. The patient and I have discussed the diagnosis and risks, and we agree with discharging home with close follow-up with the understanding that symptoms and presentations can change. We also discussed returning to the Emergency Department immediately if new or worsening symptoms occur. We have discussed the symptoms which are most concerning (e.g., changing or worsening pain, fever, numbness, weakness, cool or painful digits) that necessitate immediate return. - Vital Signs Vital signs: Temp Pulse Resp BP Pulse Ox 97.7 F 89 18 133/86 H 08/18/17 14:52 08/18/17 14:52 08/18/17 14:52 08/18/17 14:52 Discharge - Discharge Clinical Impression: Contact with stingray as cause of accidental injury Condition: Stable Disposition: HOME, SELF-CARE Instructions: [facility] ([facility]) Referrals: ROCIO BECERRA MD [Primary Care Provider] - Follow up as needed OSCAR NESBITT DO [ACTIVE STAFF] - Follow up in 3-5 days
--- NOTE | 2017-08-18 17:51 | RADIOLOGY REPORT (SQ) ---
EXAM DESCRIPTION: FOOT RIGHT COMPLETE COMPLETED DATE/TIME: 08/18/2017 4:15 pm REASON FOR STUDY: foot pain from fall COMPARISON: None. NUMBER OF VIEWS: Three views. TECHNIQUE: AP, lateral and oblique radiographic images acquired of the right foot. LIMITATIONS: None. FINDINGS: MINERALIZATION: Normal. BONES: Possible fracture base of the seconds metatarsal. There is widening of the seconds metatarsal 1st cuneiform space suggests a Lisfranc injury. JOINTS: No effusions. SOFT TISSUES: No soft tissue swelling. No foreign body. OTHER: No other significant finding. IMPRESSION: Possible fracture proximal seconds metatarsal. Question tear of the Lisfranc ligament. TECHNICAL DOCUMENTATION: JOB ID: [id number] [employer]- All Rights Reserved Reading location - IP/workstation name: [email or web address]
== END 2017-08-18 17:24 | disposition home or self-care (01) ==
LOC: ER 14:27
DX: T63.511A Toxic effect of contact with stingray, accidental (unintentional), initial encounter (principal)
CPT/HCPCS: 90471; 90715; 99283

== ENCOUNTER 2018-03-13 15:38 | Emergency (ER) | payer OTHER, MEDICARE ==
[2018-03-13] MEDS ORDERED: HYDROCODONE/ACETAMINOPHEN 5-325 MG TABLET PO ONE (16:09)
[2018-03-13 16:34] LABS: ABSOLUTE BASOPHILS # (AUTO) 0.1 10^3/uL (0.0-0.2); ABSOLUTE EOSINOPHILS # (AUTO) 0.2 10^3/uL (0.0-0.6); ABSOLUTE LYMPHOCYTES (AUTO) 1.8 10^3/uL (0.5-4.7); ABSOLUTE MONOCYTES (AUTO) 0.5 10^3/uL (0.1-1.4); ABSOLUTE NEUT (AUTO) 5.1 10^3/uL (1.7-8.2); EOSINOPHILS % (AUTO) 2.9 % (0-6); HEMATOCRIT 43.7 % (37.9-51.0); HEMOGLOBIN 15.1 g/dL (13.5-17.0); LYMPHOCYTES % (AUTO) 23.9 % (13-45); MEAN CORPUSCULAR HEMOGLOBIN 32.7 pg (27.0-33.4); MEAN CORPUSCULAR HGB CONC 34.5 g/dL (32.0-36.0); MEAN CORPUSCULAR VOLUME 95 fl (80-97); PLATELET COUNT 333 10^3/uL (150-450); RED BLOOD COUNT 4.61 10^6/uL (4.35-5.55); RED CELL DISTRIBUTION WIDTH 13.2 % (11.5-14.0); SEGMENTED NEUTROPHILS % (AUTO) 66.2 % (42-78); TOTAL CELLS COUNTED % (AUTO) 100 %; WHITE BLOOD COUNT 7.7 10^3/uL (4.0-10.5)
[2018-03-13 16:40] LABS: INTERNATIONAL RATION (INR) 1.05; PROTHROMBIN TIME 14.3 SEC (11.4-15.4)
[2018-03-13 17:13] LABS: ALANINE AMINOTRANSFERASE 35 U/L (21-72); ALBUMIN 4.8 g/dL (3.5-5.0); ALKALINE PHOSPHATASE 61 U/L (38-126); ANION GAP 9 (5-19); ASPARTATE AMINO TRANSFERASE 31 U/L (17-59); BILIRUBIN,DIRECT 0.2 mg/dL (0.0-0.4); BILIRUBIN,TOTAL 0.3 mg/dL (0.2-1.3); BLOOD UREA NITROGEN 12 mg/dL (7-20); CALCIUM 9.8 mg/dL (8.4-10.2); CARBON DIOXIDE 27 mmol/L (22-30); CHLORIDE 104 mmol/L (98-107); GLUCOSE 88 mg/dL (75-110); POTASSIUM 4.7 mmol/L (3.6-5.0); SODIUM 139.6 mmol/L (137-145)
--- NOTE | 2018-03-13 17:38 | RADIOLOGY REPORT (SQ) ---
EXAM DESCRIPTION: VENOUS UNILATERAL LOWER COMPLETED DATE/TIME: 03/13/2018 5:28 pm REASON FOR STUDY: left leg swelling, h/o prior massive DVT COMPARISON: 08/07/2016 TECHNIQUE: Dynamic and static conrad scale and color images acquired of the left leg venous system. Se lected spectral images acquired with additional compression and augmentation maneuvers. The contralat eral common femoral vein and saphenofemoral junction were also imaged. Images stored on PACS. LIMITATIONS: None. FINDINGS: COMMON FEMORAL: Normal phasicity, compression and augmentation. No visualized echogenic ma terial on conrad scale. No defects on color images. FEMORAL: Normal compression and augmentation. No visualized echogenic material on conrad scale. No defe cts on color images. POPLITEAL: Normal compression, augmentation. No visualized echogenic material on conrad scale. No defec ts on color images. CALF VESSELS: Normal compression, augmentation. No visualized echogenic material on conrad scale. No de fects on color images. GSV and SSV: Normal compression, augmentation. No visualized echogenic material on conrad scale. No def ects on color images. ANY DEEP VENOUS INSUFFICIENCY: Not evaluated. ANY EVIDENCE OF POPLITEAL CYST: No. OTHER: Slow flow. Waveforms raise the issue of more proximal DVT in the iliac vein. CONTRALATERAL COMMON FEMORAL VEIN AND SAPHENOFEMORAL JUNCTION: Normal phasicity, compression and augmentation. No visualized echogenic material on conrad scale. No de fects on color images. IMPRESSION: No DVT or SVT is seen in the left lower extremity, but there are findings raising the is kaiser of a more proximal DVT. TECHNICAL DOCUMENTATION: JOB ID: [id number] [employer]- All Rights Reserved Reading location - IP/workstation name: [email or web address]
--- NOTE | 2018-03-13 18:47 | ER Document Report ---
Entered by LINDA RIVERA SCRIBE 03/13/18 1614 Acting as scribe for:CHRISSIE DOMÍNGUEZ DO ED Medical Screen (RME) - General Chief Complaint: Leg Swelling Stated Complaint: LEG SWELLING Time Seen by Provider: 03/13/18 16:04 Primary Care Provider: ROCIO BECERRA MD [Primary Care Provider] - Follow up as needed Notes: 42-year-old male with history of DVT on warfarin presents to the emergency depar tment today with complaints of left lower extremity swelling and pain. Patient states his symptoms today are consistent with his previous DVT which was approximately 1 year ago. Patient states this DVT was of unknown etiology and he denies any history of clotting disorders. Patient does mention that about 3 weeks ago he flew to [place] but that is his only immobilization that he can remember. Of note, the patient's warfarin was checked a few days ago and he reports his INR was 1.4 cm and so he was increased to 7.5 mg a day. I have greeted and performed a rapid initial assessment of this patient. A comprehensive ED assessment and evaluation of the patient, analysis of test results, and completion of the medical decision making process will be conducted by additional ED providers. Review of systems: Constitutional: No symptoms reported EENT: No symptoms reported Cardiovascular: No symptoms reported Respiratory: No symptoms reported Gastrointestinal: No symptoms reported Genitourinary: No symptoms reported Musculoskeletal: Left lower extremity swelling and pain. Skin: No symptoms reported Hematologic/Lymphatic: No symptoms reported Neurological/Psychological: No symptoms reported Yes All other systems reviewed and negative PHYSICAL EXAM GENERAL: Alert, interacts well. No acute distress. HEAD: Normocephalic, atraumatic. EYES: Pupils equal, round, and reactive to light. Extraocular movements intact. ENT: Oral mucosa moist, tongue midline. NECK: Full range of motion. Supple. Trachea midline. LUNGS: No respiratory distress. EXTREMITIES: Trace pitting edema to the left lower extremity. Tenderness with compression of the left calf. Wearing a compression stocking on the left leg. NEUROLOGICAL: Alert and oriented x3. Normal speech. PSYCH: Normal affect, normal mood. SKIN: Warm and dry. TRAVEL OUTSIDE OF THE [place] IN LAST 30 DAYS: No - Related Data Allergies/Adverse Reactions: No Known Allergies Allergy (Verified 03/13/18 15:40) Past Medical History - Past Medical History Cardiac Medical History: Reports: Hx DVT, Hx Pulmonary Embolism Renal/ Medical History: Denies: Hx Peritoneal Dialysis Psychiatric Medical History: Reports: Hx Depression Past Surgical History: Reports: Hx Abdominal Surgery - hernia repair, Hx Bowel Surgery, Hx Vascular Surgery - stents tristan legs r/t DVT - Immunizations Hx Diphtheria, Pertussis, Tetanus Vaccination: Yes Physical Exam - Vital signs Vitals: Temp Pulse Resp BP Pulse Ox 98.3 F 82 16 132/101 H 100 03/13/18 15:54 03/13/18 15:54 03/13/18 15:54 03/13/18 15:54 03/13/18 15:54 Course - Vital Signs Vital signs: Temp Pulse Resp BP Pulse Ox 98.3 F 82 16 132/101 H 100 03/13/18 15:54 03/13/18 15:54 03/13/18 15:54 03/13/18 15:54 03/13/18 15:54 - Laboratory Result Diagrams: 03/13/18 16:22 03/13/18 16:22 Doctor's Discharge - Discharge Referrals: ROCIO BECERRA MD [Primary Care Provider] - Follow up as needed I personally performed the services described in the documentation, reviewed and edited the documentation which was dictated to the scribe in my presence, and it accurately records my words and actions.
--- NOTE | 2018-03-13 19:45 | RADIOLOGY REPORT (SQ) ---
EXAM DESCRIPTION: CT PELVIS WITH COMPLETED DATE/TIME: 03/13/2018 7:18 pm REASON FOR STUDY: CONCERN FOR PELVIC DVT, LEFT SIDED, VENOGRAM REQUESTED COMPARISON: None. EXAM PARAMETERS: TECHNIQUE: CT scan of the body and lower extremities performed with and without int ravenous contrast using helical scanning technique with dynamic intravenous contrast injection. Image s reviewed with lung, soft tissue, and bone windows. Reconstructed coronal and sagittal MPR images re viewed. All images stored on PACS. Advanced 3D imaging as volume-rendering, MIPs, SSD performed? yes All CT scanners at this facility use dose modulation, iterative reconstruction, and/or weight based d osing when appropriate to reduce radiation dose to as low as reasonably achievable (ALARA). [facility]: Dose Right [facility]: SureCare [facility]: Dose Right [facility]: Teradose 4D [facility]: Wantful CONTRAST TYPE AND DOSE: 75mL Omnipaque 350- low osmolar. RENAL FUNCTION: BUN 12 creatinine 0.98 RADIATION DOSE: CT Rad equipment meets quality standard of care and radiation dose reduction techniqu es were employed. CTDIvol: 7.6 - 83.1 mGy. DLP: 694 mGy-cm. mGy. LIMITATIONS: None. FINDINGS: Imaging is performed in the pelvis an effort to rule out left iliac vein thrombosis. Bila teral iliac vein stents are seen. The left iliac vein enhances less than the right iliac vein. The findings are not absolutely definitive, but are suggestive of left iliac thrombosis. Otherwise, included portions of the bowel are unremarkable. Urinary bladder is normal. No pelvic ma sses or fluid collections are seen. The osseous structures are normal. IMPRESSION: Cannot exclude thrombosis in the left iliac vein. Bilateral iliac veins stents are pres ent. TECHNICAL DOCUMENTATION: JOB ID: [id number] [facility] [id number]: Final reports with documentation of one or more dose reduction techniques (e.g., Automate d exposure control, adjustment of the mA and/or kV according to patient size, use of iterative recons truction technique) 2010 [employer]- All Rights Reserved Reading location - IP/workstation name: [email or web address]
--- NOTE | 2018-03-13 21:42 | ER Document Report ---
ED General - General Chief Complaint: Leg Swelling Stated Complaint: LEG SWELLING Time Seen by Provider: 03/13/18 16:04 Primary Care Provider: ROCIO BECERRA MD [NO LOCAL MD] - Follow up as needed Notes: Patient is a 42-year-old male with history of DVT on warfarin presents to the emergency department today with complaints of left lower extremity swelling and pain. Patient states his symptoms today are consistent with his previous DVT which was approximately 1 year ago. Patient states this DVT was of unknown niki ology and he denies any history of clotting disorders. Patient does mention that about 3 weeks ago he flew to [place] but that is his only immobilization that he can remember. Of note, the patient's warfarin was checked a few days ago and he reports his INR was 1.4 cm and so he was increased to 7.5 mg a day. He does describe the pain in his left lower cavity as being a dull, throbbing, aching pain. Worsened by walking or touching the leg. Nothing improves the pain. Has not yet contacted his primary care doctor regarding today's concerns. Of note, he is not currently on Lovenox despite having a low INR. TRAVEL OUTSIDE OF THE [place] IN LAST 30 DAYS: No - Related Data Allergies/Adverse Reactions: No Known Allergies Allergy (Verified 03/13/18 15:40) Past Medical History - General Information source: Patient - Social History Smoking Status: Never Smoker Frequency of alcohol use: None Drug Abuse: None Lives with: Spouse/Significant other Family History: Reviewed & Not Pertinent Patient has suicidal ideation: No Patient has homicidal ideation: No - Past Medical History Cardiac Medical History: Reports: Hx DVT, Hx Pulmonary Embolism Renal/ Medical History: Denies: Hx Peritoneal Dialysis Psychiatric Medical History: Reports: Hx Depression Past Surgical History: Reports: Hx Abdominal Surgery - hernia repair, Hx Bowel Surgery, Hx Vascular Surgery - stents tristan legs r/t DVT - Immunizations Hx Diphtheria, Pertussis, Tetanus Vaccination: Yes Review of Systems - Review of Systems Notes: Constitutional: Negative for fever. HENT: Negative for sore throat. Eyes: Negative for visual changes. Cardiovascular: Negative for chest pain. Respiratory: Negative for shortness of breath. Gastrointestinal: Negative for abdominal pain, vomiting or diarrhea. Genitourinary: Negative for dysuria. Musculoskeletal: Positive for left lower extremity swelling and pain Skin: Negative for rash. Neurological: Negative for headaches, weakness or numbness. 10 point ROS negative except as marked above and in HPI. Physical Exam - Vital signs Vitals: Temp Pulse Resp BP Pulse Ox 98.3 F 82 16 132/101 H 100 03/13/18 15:54 03/13/18 15:54 03/13/18 15:54 03/13/18 15:54 03/13/18 15:54 Interpretation: Normal Notes: PHYSICAL EXAMINATION: GENERAL: Well-appearing, well-nourished and in no acute distress. HEAD: Atraumatic, normocephalic. EYES: Pupils equal round and reactive to light, extraocular movements intact, sclera anicteric, conjunctiva are normal. ENT: nares patent, oropharynx clear without exudates. Moist mucous membranes. NECK: Normal range of motion, supple without lymphadenopathy LUNGS: Breath sounds clear to auscultation bilaterally and equal. No wheezes rales or rhonchi. HEART: Regular rate and rhythm without murmurs, 2+ DP pulses bilaterally ABDOMEN: Soft, nontender, normoactive bowel sounds. No guarding, no rebound. No masses appreciated. EXTREMITIES: Normal range of motion, 1-2+ pitting edema in the left lower extremity with mild discoloration throughout particular below the level of the knee. NEUROLOGICAL: No focal neurological deficits. Moves all extremities spontaneou sly and on command. PSYCH: Normal mood, normal affect. SKIN: Warm, Dry, normal turgor, no rashes or lesions noted. Course - Re-evaluation Re-evalutation: 03/13/18 21:44 Patient presents with 12 hours of progressive worsening left lower extremity swelling and pain. The patient had a venous Doppler of the left lower extremity which did not reveal any blood clots although did show findings consistent with a higher level occlusion. CT of the pelvis was obtained and shows non- excludable occlusion to the left iliac. Given patient's exam which does show obvious edema to the left lower extremity, 2+ relative to a normal right lower extremity as well as the patient's pain and report that this feels identical to previous occlusions he has had in the past as well as a non-therapeutic INR I do suspect that the iliac occlusion is likely present. The patient will be bridged on Lovenox, will follow up with his second rigger. No indication for hospitalization at this time. 2+ DP pulses bilaterally. Pain is easily controlled without any interventions. At this time will discharge with return precautions and follow-up recommendations. Verbal discharge instructions given a the bedside and opportunity for questions given. Medication warnings reviewed. Patient is in agreement with this plan and has verbalized understanding of return precautions and the need for primary care follow-up in the next 24-72 hours. 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 The ultrasound of your leg does not show any blood clot but the CAT scan of your pelvis does appear to show a likely blockage in the iliac vein on the left side. Given the swelling in your left leg, it is very probable that you do have a blockage to this vein. Please continue taking her warfarin as prescribed. Your INR was 1.04 today whic h is not at all therapeutic. You therefore need to begin taking the Lovenox that you have at home. You would take 110 mg twice daily. You need to follow- up with your second rigger urgently for long-term management planning. Return if you develop shortness of breath, chest pain, worsening pain your leg, increased swelling or any other symptoms that are worrisome to you. Prescriptions: Enoxaparin Sodium [Lovenox Inj 120 mg/0.8 ml Disp.syrin] 120 mg SUBCUT Q12 #60 disp.syrin Referrals: ROCIO BECERRA MD [NO LOCAL MD] - Follow up as needed
[2018-03-13 21:58] VITALS: BP 139/88
[2018-03-13] MEDS ORDERED: ENOXAPARIN SODIUM INJ 120 MG/0.8 ML DISP.SYRIN SUBCUT SCH (22:00)
== END 2018-03-13 21:56 | disposition home or self-care (01) ==
LOC: ER 15:38
DX: I82.422 Acute embolism and thrombosis of left iliac vein (principal); R60.0 Localized edema; Z79.01 Long term (current) use of anticoagulants; Z86.711 Personal history of pulmonary embolism
CPT/HCPCS: 36415; 72193; 80053; 85025; 85610; 93971; 99284

== ENCOUNTER 2018-12-07 09:47 | Emergency (ER) | payer OTHER, MEDICARE ==
[2018-12-07] MEDS ORDERED: KETOROLAC TROMETHAMINE 60 MG/2 ML SDV IM ONE (10:12)
[2018-12-07] MEDS ORDERED: KETOROLAC TROMETHAMINE INJ/PF 30 MG/1 ML SDV IV ONE (10:14)
--- NOTE | 2018-12-07 10:14 | ER Document Report ---
ED Extremity Problem, Lower - General Chief Complaint: Leg Pain Stated Complaint: LEG PAIN Time Seen by Provider: 12/07/18 10:08 [facility] [[facility] - Follow up as needed Mode of Arrival: Ambulatory Information source: Patient TRAVEL OUTSIDE OF THE U.S. IN LAST 30 DAYS: No - HPI Patient complains to provider of: Pain - Pt with h/o DVT in both LE's on Lovenox with onset of R leg pain earlier this am. Denies SOB. Pt. has had haresh filter placed in the past at [facility] but it has been removed. - Related Data Allergies/Adverse Reactions: No Known Allergies Allergy (Verified 12/07/18 10:11) Past Medical History - Social History Smoking Status: Current Every Day Smoker Frequency of alcohol use: Social Drug Abuse: None Family History: Reviewed & Not Pertinent Patient has suicidal ideation: No Patient has homicidal ideation: No - Past Medical History Cardiac Medical History: Reports: Hx DVT, Hx Pulmonary Embolism Renal/ Medical History: Denies: Hx Peritoneal Dialysis Psychiatric Medical History: Reports: Hx Depression Past Surgical History: Reports: Hx Abdominal Surgery - hernia repair, Hx Bowel Surgery, Hx Vascular Surgery - stents tristan legs r/t DVT - Immunizations Hx Diphtheria, Pertussis, Tetanus Vaccination: Yes Review of Systems - Review of Systems Constitutional: No symptoms reported EENT: No symptoms reported Cardiovascular: No symptoms reported Respiratory: No symptoms reported Gastrointestinal: No symptoms reported Musculoskeletal: See HPI, Leg swelling, Other - Leg pain- R Neurological/Psychological: No symptoms reported -: Yes All other systems reviewed and negative Physical Exam - Vital signs Vitals: Temp Pulse Resp BP Pulse Ox 97.5 F 99 16 144/86 H 97 12/07/18 09:54 12/07/18 09:54 12/07/18 09:54 12/07/18 09:54 12/07/18 09:54 - General General appearance: Appears well In distress: Mild - HEENT Pharynx: Normal Neck: Normal - Respiratory Respiratory status: No respiratory distress Chest status: Nontender Breath sounds: Normal - Cardiovascular Rhythm: Regular Heart sounds: Normal auscultation Murmur: No - Abdominal Bowel sounds: Normal Tenderness: Nontender - Extremities General upper extremity: Normal inspection General lower extremity: Tender - The is min-mod TTP of the R LE diffusely with min edema and no erythema. There is FROM and it is N/V intact. L LE is non- tender and neither swollen or edemetous. It is N/V intact Course - Re-evaluation Re-evalutation: 12/07/18 11:29 I have spoken to our hospitalist and Dr. Farley -- since we don;t do thrombolysis here, they have recommended that pt. be transferred to [facility] for this procedure. - Vital Signs Vital signs: Temp Pulse Resp BP Pulse Ox 98 F 99 15 133/95 H 94 12/07/18 11:01 12/07/18 09:54 12/07/18 11:01 12/07/18 11:01 12/07/18 11:01 12/07/18 12:03 [address] have spoken to Dr[address] Peterson at [facility] and she will accept the pt. in transfer for thrombolysis - Laboratory Result Diagrams: 12/07/18 10:47 12/07/18 10:47 Laboratory results interpreted by me: 12/07/18 10:47 Glucose 139 H Total Protein 8.5 H - Diagnostic Test Radiology reviewed: Reports reviewed - extensive DVT of entire R LE - Consults t.c. dr. peterson ([facility]) Time consulted: 12:04 Consulted provider: other - she will accept in transfer today (ED to ED) Critical Care Note - Critical Care Note Total time excluding time spent on procedures (mins): 30 Discharge - Discharge Clinical Impression: DVT (deep venous thrombosis) Qualifiers: DVT location: lower extremity Affected thrombotic vein of extremity: unspecified lower extremity proximal vein Chronicity: acute Laterality: right Qualified Code(s): I82.4Y1 - Acute embolism and thrombosis of unspecified deep veins of right proximal lower extremity Condition: Stable Disposition: [place] [facility]: [facility] [[facility]] - Follow up as needed
[2018-12-07 10:52] LABS: ABSOLUTE BASOPHILS # (AUTO) 0.1 10^3/uL (0.0-0.2); ABSOLUTE EOSINOPHILS # (AUTO) 0.2 10^3/uL (0.0-0.6); ABSOLUTE LYMPHOCYTES (AUTO) 1.7 10^3/uL (0.5-4.7); ABSOLUTE MONOCYTES (AUTO) 0.5 10^3/uL (0.1-1.4); ABSOLUTE NEUT (AUTO) 7.8 10^3/uL (1.7-8.2); BASOPHILS % (AUTO) 0.8 % (0-2); EOSINOPHILS % (AUTO) 1.6 % (0-6); HEMATOCRIT 44.6 % (37.9-51.0); HEMOGLOBIN 15.3 g/dL (13.5-17.0); LYMPHOCYTES % (AUTO) 16.5 % (13-45); MEAN CORPUSCULAR HEMOGLOBIN 31.1 pg (27.0-33.4); MEAN CORPUSCULAR HGB CONC 34.3 g/dL (32.0-36.0); MEAN CORPUSCULAR VOLUME 91 fl (80-97); MONOCYTES % (AUTO) 4.8 % (3-13); PLATELET COUNT 282 10^3/uL (150-450); RED BLOOD COUNT 4.92 10^6/uL (4.35-5.55); SEGMENTED NEUTROPHILS % (AUTO) 76.3 % (42-78); TOTAL CELLS COUNTED % (AUTO) 100 %; WHITE BLOOD COUNT 10.3 10^3/uL (4.0-10.5)
[2018-12-07 11:10] LABS: ALBUMIN 4.9 g/dL (3.5-5.0); ALKALINE PHOSPHATASE 69 U/L (38-126); ANION GAP 14 (5-19); ASPARTATE AMINO TRANSFERASE 24 U/L (17-59); BILIRUBIN,DIRECT 0.1 mg/dL (0.0-0.4); BILIRUBIN,TOTAL 0.6 mg/dL (0.2-1.3); BLOOD UREA NITROGEN 20 mg/dL (7-20); CALCIUM 9.9 mg/dL (8.4-10.2); CARBON DIOXIDE 22 mmol/L (22-30); CHLORIDE 104 mmol/L (98-107); GLUCOSE 139 mg/dL (75-110); POTASSIUM 4.2 mmol/L (3.6-5.0); TOTAL PROTEIN 8.5 g/dL (6.3-8.2)
[2018-12-07] MEDS ORDERED: MORPHINE SULFATE 10 MG/ML INJ IV ONE (11:38)
--- NOTE | 2018-12-07 11:46 | XCELERA REPORT ---
[address] [address] Lower Extremity Venous Evaluation Procedure: Color flow and duplex imaging of the veins of the right lower extremity as well as the left Common Femoral vein. Right Sided Venous Evaluation Abnormal vessel filling, no compression or Colour flow , enlarged , echo poor from Common Femoral down to the infrageniculate veins. Left Sided Venous Evaluation The left common femoral vein is fully compressible. Spontaneous and phasic flow is present in the left common femoral vein. Critical Findings Discssred with Dr Garcia. Interpretation Summary Unusually extensive, acute DVT in the right lower extremity. Name: ALESSIO JOHNSON Shad Age: 43 yrs Gender: Male : 1975 Patient Status: Preadmit Patient Location: ER Study Date: 12/07/2018 10:54 AM Reason For Study: R leg pain Ordering Physician: JORGE Performed By: Airam Montalvo : JORGE > Ramez Farley
[2018-12-07 12:59] VITALS: BP 125/82
== END 2018-12-07 12:47 | disposition short-term general hospital (02) ==
LOC: ER 09:47
DX: I82.401 Acute embolism and thrombosis of unspecified deep veins of right lower extremity (principal); F17.200 Nicotine dependence, unspecified, uncomplicated; Z86.711 Personal history of pulmonary embolism; Z79.02 Long term (current) use of antithrombotics/antiplatelets
CPT/HCPCS: 99291; 96374; 96375; 36415; 85025; 80053; 93971 ×2; J1885; J2270

== ENCOUNTER 2020-02-15 10:06 | Inpatient (IN) | payer OTHER, MEDICARE ==
--- NOTE | 2020-02-15 11:29 | ER Document Report ---
ED Medical Screen (RME) - General Chief Complaint: Leg Pain Stated Complaint: LEG PAIN/NUMBNESS Time Seen by Provider: 02/15/20 11:18 Primary Care Provider: [facility] BROWN [Primary Care Provider] - Follow up as needed TRAVEL OUTSIDE OF THE U.S. IN LAST 30 DAYS: No - HPI Notes: 02/15/20 11:24 44-year-old male with a history of pulmonary embolism and multiple DVTs presents to the emergency room today for evaluation of left leg numbness, discoloration and pain that started 3 days ago. Patient is on Lovenox injections currently. Patient has a failed IVC filter. Denies any shortness of breath or chest pain. Patient reports his DVTs were typically near his groin in his legs but they had scattered down to his lower leg. Patient still does have his IVC filter it was "smashed in put to the side". Patient worked up by [place] and the [place]. denies any chest pain or shortness of breath, fevers or chills. I have greeted and performed a rapid initial assessment of this patient. A comprehensive ED assessment and evaluation of the patient, analysis of test results and completion of the medical decision making process will be conducted by additional ED providers. PHYSICAL EXAMINATION: GENERAL: Well-appearing, well-nourished and in no acute distress. CV: s1, s2 regular LUNGS: No respiratory distress Musculoskeletal: Normal range of motion NEUROLOGICAL: Normal speech, normal gait. SKIN: Warm, Dry, normal turgor, no rashes or lesions noted. Faint left distal pulses on palpation. Cap refill less than 3 seconds. Noted left lower extremity with erythema, no induration, warmth to touch. The patient was evaluated during a global COVID-19 pandemic and that diagnosis was suspected/considered upon their initial presentation. Their evaluation, treatment and testing was consistent with current guidelines for patients who present with complaints or symptoms and may be related to COVID-19. - Related Data Allergies/Adverse Reactions: No Known Allergies Allergy (Verified 02/15/20 11:16) Past Medical History - Past Medical History Cardiac Medical History: Reports: Hx DVT, Hx Pulmonary Embolism Renal/ Medical History: Denies: Hx Peritoneal Dialysis Psychiatric Medical History: Reports: Hx Depression Past Surgical History: Reports: Hx Abdominal Surgery - hernia repair, Hx Bowel Surgery, Hx Vascular Surgery - stents tristan legs r/t DVT - Immunizations Hx Diphtheria, Pertussis, Tetanus Vaccination: Yes Physical Exam - Vital signs Vitals: Temp Pulse Resp BP Pulse Ox 97.5 F 83 16 168/94 H 99 02/15/20 10:11 02/15/20 10:11 02/15/20 10:11 02/15/20 10:11 02/15/20 10:11 Course - Vital Signs Vital signs: Temp Pulse Resp BP Pulse Ox 97.5 F 83 16 168/94 H 99 02/15/20 10:11 02/15/20 10:11 02/15/20 10:11 02/15/20 10:11 02/15/20 10:11 Doctor's Discharge - Discharge [facility]errals: [facility] [[facility] - Follow up as needed
--- NOTE | 2020-02-15 13:20 | RADIOLOGY REPORT (SQ) ---
EXAM DESCRIPTION: VENOUS BILATERAL LOWER IMAGES COMPLETED DATE/TIME: 02/15/2020 1:03 pm REASON FOR STUDY: pain left leg / Hx clots COMPARISON: None. TECHNIQUE: Dynamic and static conrad scale and color images acquired of both lower extremity venous sy stems. Selected spectral images acquired with additional compression and augmentation maneuvers. Imag es stored on PACS. LIMITATIONS: 12/07/2018 FINDINGS: RIGHT LEG COMMON FEMORAL AND FEMORAL: The common femoral vein stent is demonstrated. Acute on chronic thrombus is seen of the saphenous femoral junction extending through the femoral vein. POPLITEAL: Normal compression and augmentation. No visualized echogenic material on conrad scale. No de fects on color images. CALF VESSELS: Normal compression and augmentation. No visualized echogenic material on conrad scale. No defects on color image. GSV AND SSV: Acute thrombus is seen within the greater and superficial saphenous veins. ANY DEEP VENOUS INSUFFICIENCY: Not evaluated. ANY EVIDENCE OF POPLITEAL CYST: No. OTHER: No other significant finding. LEFT LEG COMMON FEMORAL AND FEMORAL: Acute thrombus is seen of the common femoral vein extending to the level of the popliteal vein. POPLITEAL: Acute nonocclusive thrombus. CALF VESSELS: Nonocclusive thrombus is seen within 1 of 2 peroneal veins. GSV AND SSV: Nonocclusive thrombus is seen within the superficial saphenous vein. ANY DEEP VENOUS INSUFFICIENCY: Not evaluated. ANY EVIDENCE POPLITEAL CYST: No. OTHER: No other significant finding. IMPRESSION: 1. Right common femoral vein vascular stent. Partially occlusive acute on chronic thro mbus is seen extending from the saphenous femoral junction through the length of the femoral vein. S uperficial thrombosis is noted of the greater and superficial saphenous veins. 2. Acute thrombus is seen extending from the common femoral vein through to the level of the poplite al vein. Nonocclusive thrombus is seen within the peroneal vein and superficial saphenous vein. TECHNICAL DOCUMENTATION: JOB ID: [id number] 2010 [employer]- All Rights Reserved Reading location - IP/workstation name: [email or web address]
[2020-02-15] MEDS ORDERED: MORPHINE SULFATE 10 MG/ML INJ IV ONE (13:37)
[2020-02-15] MEDS ORDERED: ONDANSETRON HCL INJ/PF 4 MG/2 ML SDV IV ONE (13:37)
[2020-02-15 13:54] LABS: ABSOLUTE BASOPHILS # (AUTO) 0.1 10^3/uL (0.0-0.2); ABSOLUTE EOSINOPHILS # (AUTO) 0.1 10^3/uL (0.0-0.6); ABSOLUTE LYMPHOCYTES (AUTO) 1.4 10^3/uL (0.5-4.7); ABSOLUTE MONOCYTES (AUTO) 0.6 10^3/uL (0.1-1.4); ABSOLUTE NEUT (AUTO) 6.3 10^3/uL (1.7-8.2); EOSINOPHILS % (AUTO) 1.4 % (0-6); HEMATOCRIT 38.9 % (37.9-51.0); HEMOGLOBIN 13.3 g/dL (13.5-17.0); LYMPHOCYTES % (AUTO) 16.8 % (13-45); MEAN CORPUSCULAR HEMOGLOBIN 30.2 pg (27.0-33.4); MEAN CORPUSCULAR HGB CONC 34.1 g/dL (32.0-36.0); MEAN CORPUSCULAR VOLUME 89 fl (80-97); MONOCYTES % (AUTO) 6.7 % (3-13); PLATELET COUNT 238 10^3/uL (150-450); RED BLOOD COUNT 4.39 10^6/uL (4.35-5.55); RED CELL DISTRIBUTION WIDTH 16.8 % (11.5-14.0); SEGMENTED NEUTROPHILS % (AUTO) 74.1 % (42-78); TOTAL CELLS COUNTED % (AUTO) 100 %; WHITE BLOOD COUNT 8.5 10^3/uL (4.0-10.5)
[2020-02-15 14:00] LABS: INTERNATIONAL RATION (INR) 1.09; PROTHROMBIN TIME 14.4 SEC (11.4-15.4)
[2020-02-15 14:10] LABS: ALBUMIN 4.4 g/dL (3.5-5.0); ALKALINE PHOSPHATASE 100 U/L (38-126); ANION GAP 12 (5-19); ASPARTATE AMINO TRANSFERASE 24 U/L (17-59); BILIRUBIN,DIRECT 0.3 mg/dL (0.0-0.4); BILIRUBIN,TOTAL 0.8 mg/dL (0.2-1.3); BLOOD UREA NITROGEN 8 mg/dL (7-20); CALCIUM 9.2 mg/dL (8.4-10.2); CARBON DIOXIDE 29 mmol/L (22-30); CHLORIDE 98 mmol/L (98-107); GLUCOSE 116 mg/dL (75-110); POTASSIUM 4.1 mmol/L (3.6-5.0); TOTAL PROTEIN 8.3 g/dL (6.3-8.2)
--- NOTE | 2020-02-15 14:19 | RADIOLOGY REPORT (SQ) ---
EXAM DESCRIPTION: CTA CHEST IMAGES COMPLETED DATE/TIME: 02/15/2020 10:57 am REASON FOR STUDY: LLE swelling/discoloration, hx of PE/DVTs COMPARISON: CT chest 05/23/2011. TECHNIQUE: CT scan of the chest performed using helical scanning technique with dynamic intravenous contrast injection. Images reviewed with lung, soft tissue and bone windows. Reconstructed coronal and sagittal MPR images reviewed. Additional 3 dimensional post-processing performed to develop Maximal Intensity Projection images (WA P). All images stored on PACS. All CT scanners at this facility use dose modulation, iterative reconstruction, and/or weight based d osing when appropriate to reduce radiation dose to as low as reasonably achievable (ALARA). [facility]: Dose Right [facility]: CareDose [facility]: Dose Right [facility]: Teradose 4D [facility]: [employer] CONTRAST TYPE AND DOSE: contrast/concentration: Isovue 350.00 mmol/ml; Total Contrast Delivered: 74. 0 ml; Total Saline Delivered: 56.6 ml RENAL FUNCTION: None required. The patient is less than 50 years old. RADIATION DOSE: CT Rad equipment meets quality standard of care and radiation dose reduction techniq ues were employed. CTDIvol: 9.9 - 22.4 mGy. DLP: 858 mGy-cm. . LIMITATIONS: Suboptimal contrast bolus. FINDINGS: LUNGS AND PLEURA: Mild bilateral opacities probably representing atelectasis. There may b e some linear scarring in the superior segment right lower lobe. No pleural effusion or thickening. No pneumothorax. No mass lesion identified. AORTA AND GREAT VESSELS: No aneurysm. No dissection. HEART: No pericardial effusion. No significant coronary artery calcifications. PULMONARY ARTERIES: Suboptimal contrast bolus. Some of the distal branches are not adequately assess ed due to poor contrast bolus and motion artifact. Despite the limited contrast bolus, there is a fi lling defect identified within the distal aspect of the right lower lobe pulmonary artery extending i nto segmental branches (series 3 images 50-53). HILAR AND MEDIASTINAL STRUCTURES: No identified masses or abnormal nodes. HARDWARE: None in the chest. UPPER ABDOMEN: Small gallstone or gallbladder polyp. No acute inflammatory change. THYROID AND OTHER SOFT TISSUES: Visualized thyroid gland is unremarkable. Bilateral gynecomastia. BONES: No acute or significant finding. 3D MIPS: Confirm above findings. OTHER: No other significant finding. IMPRESSION: 1. Suboptimal contrast bolus. There is a small pulmonary embolism in the right lower l obe pulmonary artery and extending into segmental branches. No large central PE. No definite signif icant evidence of right heart strain. 2. Mild bilateral opacities likely representing atelectasis. COMMENT: This report was called to FERNIE STEWART at11:11 [place] time on 02/15/2020. Quality ID # [id number]: Final reports with documentation of one or more dose reduction techniques (e.g., Au tomated exposure control, adjustment of the mA and/or kV according to patient size, use of iterative reconstruction technique) TECHNICAL DOCUMENTATION: JOB ID: [id number] 2010 [employer]- All Rights Reserved Reading location - IP/workstation name: [email or web address]
--- NOTE | 2020-02-15 15:24 | ER Document Report ---
ED Extremity Problem, Lower - General Chief Complaint: Leg Pain Stated Complaint: LEG PAIN/NUMBNESS Time Seen by Provider: 02/15/20 11:18 Primary Care Provider: PAN[facility] BROWN [Primary Care Provider] - Follow up as needed Mode of Arrival: Ambulatory Information source: Patient Notes: 02/15/20 11:18 - ED Nursing Note by ADILENE MELGAR Num: [id number] : 1975 Patient Age: 44 pt comes to ed from home via pov brought by self for c/o left lower leg darkening discoloration, numbness and pain onset 2-3 days. pt has hx of pe and bilateral DVT and is on lovenox. denies CP or SOB. pt has been worked up by [facility] and [place] with no diagnosis. Hx of failed IVC filter. reports dvts are in groin and scatter. pt also reports possibel injection site complication to Left [place]. pt has small area of erythema and redness. no drainage. Initialized on 02/15/20 11:18 - END OF NOTE ED Medical Screen ([facility]) - General Chief Complaint: Leg Pain Stated Complaint: LEG PAIN/NUMBNESS Time Seen by Provider: 02/15/20 11:18 Primary Care Provider: PANCHO BROWN [Primary Care Provider] - Follow up as needed TRAVEL OUTSIDE OF THE U.S. IN LAST 30 DAYS: No - HPI Notes: 02/15/20 11:24 44-year-old male with a history of pulmonary embolism and multiple DVTs presents to the emergency room today for evaluation of left leg numbness, discoloration and pain that started 3 days ago. Patient is on Lovenox injections currently. Patient has a failed IVC filter. Denies any shortness of breath or chest pain. Patient reports his DVTs were typically near his groin in his legs but they had scattered down to his lower leg. Patient still does have his IVC filter it was "smashed in put to the side". [facility] denies any chest pain or shortness of breath, fevers or chills. MY NOTES 44-year-old male arrives with numbness of his left foot for the last 3 to 4 days. He was seen by Steve upfront and had an ultrasound and CTA of his chest. Patient denies any mopped assist shortness of breath. He reports he had Covid in early December and had resolution of his swelling of his legs from chronic DVTs. He reports since 2009 he has suffered with bilateral DVTs and was in the [employer] for 18 years when he was discharged for medical reasons. He has been on all the blood thinners to include Coumadin Lovenox Pradaxa. He reports the Coumadin caused multiple problems but the Pradaxa did well for several years. He has been taking Lovenox twice a day for the last several years. He is positive for DVT and for PEs today. No one else in the family has any clotting problems only the patient. He admits he has been worked up at [facility] and at [place] for his condition. He advises "he would like to get Covid again because his leg swellings decreased so much." I spoke with Dr. Jackson at around [address] Coffey hr generalist heme-onc to be called. I did speak to her at 1550 and she advises Arixtra 10 mg subcu daily. I again called Dr. Jackson at 1400 and he will see the patient TRAVEL OUTSIDE OF THE U.S. IN LAST 30 DAYS: No - HPI Patient complains to provider of: Altered sensation, Pain, Swelling. No: Injury Location: Leg, Thigh. No: Ankle, Back, Buttock, Foot, Hip, Knee, Great Toe - At this input and is offer like Where: No: Home - is open, Indoors, Neighbor's, [place], Outdoors Onset/Duration: Persistent - Persistent Quality of pain: Achy Severity: Mild - AKA Pain Level: 1 Context: denies: Burn, Crush, Direct blow, Fell, Laceration, Recent surgery - None none none none none none none none none none none recent illness yes Covid Recent injury: No - no Associated symptoms: Unable to bear weight. denies: Chest pain, Chills, Dizzy, Fainting, Fever, Hurts to breath - And, Painful ambulation, Rapid heart rate, Short of breath Exacerbated by: Movement - 1 Relieved by: Rest - Nothing. denies: Nothing, Elevation - Nothing, Ice - nothing nothing - Related Data Allergies/Adverse Reactions: No Known Allergies Allergy (Verified 02/15/20 11:16) Home Medications: lovenox, percocet Past Medical History - General Information source: Patient - Patient - Social History Smoking Status: Former Smoker Cigarette use (# per day): No Chew tobacco use (# tins/day): No Smoking Education Provided: No - No no Frequency of alcohol use: Rare Drug Abuse: None Lives with: Family Family History: Reviewed & Not Pertinent Patient has suicidal ideation: No - No Patient has homicidal ideation: No - Past Medical History Cardiac Medical History: Reports: Hx DVT, Hx Pulmonary Embolism Renal/ Medical History: Denies: Hx Peritoneal Dialysis Psychiatric Medical History: Reports: Hx Depression Past Surgical History: Reports: Hx Abdominal Surgery - hernia repair, Hx Bowel Surgery, Hx Vascular Surgery - stents tristan legs r/t DVT - Immunizations Hx Diphtheria, Pertussis, Tetanus Vaccination: Yes Review of Systems - Review of Systems Constitutional: See HPI, Weakness EENT: No symptoms reported Cardiovascular: No symptoms reported Respiratory: No symptoms reported Gastrointestinal: No symptoms reported Genitourinary: No symptoms reported Male Genitourinary: No symptoms reported Musculoskeletal: See HPI, Joint swelling, Muscle pain, Muscle stiffness, Leg swelling, Ankle swelling, Other - Numbness of her left dorsal foot Skin: No symptoms reported Hematologic/Lymphatic: No symptoms reported Neurological/Psychological: No symptoms reported -: Yes All other systems reviewed and negative Physical Exam - Vital signs Vitals: Temp Pulse Resp BP Pulse Ox 97.5 F 83 16 168/94 H 99 02/15/20 10:11 02/15/20 10:11 02/15/20 10:11 02/15/20 10:11 02/15/20 10:11 Interpretation: Normal - General General appearance: Appears well, Alert - HEENT Head: Normocephalic, Atraumatic Eyes: Normal Pupils: PERRL - Respiratory Respiratory status: No respiratory distress Chest status: Nontender Breath sounds: Normal Chest palpation: Normal - Cardiovascular Rhythm: Regular Heart sounds: Normal auscultation Murmur: No - Abdominal Inspection: Normal Distension: No distension Bowel sounds: Normal Tenderness: Nontender Organomegaly: No organomegaly - Rectal Prostate: Other - Deferred - Genitourinary Scrotum: Other - Deferred - Back Back: Normal, Nontender - Extremities General upper extremity: Normal inspection, Nontender, Normal color, Normal ROM, Normal temperature General lower extremity: Tender, Edema, Normal color - bluish discolored bilateral legs left greater than right. Patient has a positive cord on his left medial thigh and left calf palpable nontender to palpation, Normal ROM, Normal temperature, Normal weight bearing. No: Alin's sign - Neurological Neuro grossly intact: Yes Cognition: Normal Orientation: AAOx4 Archer Coma Scale Eye Opening: Spontaneous Archer Coma Scale Verbal: Oriented Stacy Coma Scale Motor: Obeys Commands Archer Coma Scale Total: 15 Speech: Normal Motor strength normal: LUE, RUE, LLE, RLE Sensory: Normal - Psychological Associated symptoms: Normal affect, Normal mood - Skin Skin Temperature: Warm Skin Moisture: Dry Skin Color: Normal Course - Vital Signs Vital signs: Temp Pulse Resp BP Pulse Ox 97.5 F 83 16 168/94 H 99 02/15/20 10:11 02/15/20 10:11 02/15/20 10:11 02/15/20 10:11 02/15/20 10:11 - Laboratory Results Result Diagrams: 02/15/20 13:19 02/15/20 13:19 Laboratory Results Interpreted: 02/15/20 02/15/20 02/15/20 13:19 13:19 13:19 Hgb 13.3 L RDW 16.8 H APTT 42.0 H Glucose 116 H Total Protein 8.3 H Critical Laboratory Results Reviewed: Yes Attending or Supervising Physician who Reviewed Labs: AYANA KWONG JR - Radiology Results Radiology Results Interpreted: 02/15/20 18:27 fl[place] and makayla radiologists read ultrasound and CTs Critical Radiology Results Reviewed: Yes Attending or Supervising Physician who Reviewed Radiology: AYANA KWONG JR Critical Care Note - Critical Care Note Total time excluding time spent on procedures (mins): 45 - time discussing with hem/onc and hospitalist Comments: Advised patient of his CT and ultrasound findings of DVT and PE and of ad mission. Discharge - Discharge Clinical Impression: DVT of axillary vein, acute left Pulmonary embolism Qualifiers: Pulmonary embolism type: unspecified Chronicity: acute Acute cor pulmonale presence: unspecified Qualified Code(s): I26.99 - Other pulmonary embolism without acute cor pulmonale Condition: Stable Disposition: ADMITTED INPATIENT Admitting Provider: Manuel (Hospitalist) Unit Admitted: Medical Floor [facility]: [facility] - Follow up as needed
[2020-02-15] MEDS ORDERED: HEPARIN SOD (PORCINE) 1,000 UNIT/ML 10 ML VIAL IV ONE (15:30)
[2020-02-15] MEDS ORDERED: DEXAMETHASONE SOD PHOS INJ 10 MG/1 ML VIAL IV ONE (15:41)
[2020-02-15] MEDS ORDERED: FONDAPARINUX SODIUM INJ 10 MG/0.8 ML DISP.SYRIN SUBCUT ONE ×2 (15:58→22:18)
[2020-02-15] MEDS ORDERED: ACETAMINOPHEN 325 MG TABLET PO PRN (16:47)
[2020-02-15] MEDS ORDERED: ONDANSETRON HCL INJ/PF 4 MG/2 ML SDV IV PRN (16:47)
[2020-02-15] MEDS ORDERED: MORPHINE SULFATE 10 MG/ML INJ IV PRN (16:53)
--- NOTE | 2020-02-15 17:06 | PDOC H&P ---
History of Present Illness Admission Date/PCP: [facility] Patient complains of: Came in with complaints of left lower leg swelling and pain. History of Present Illness: ALESSIO JOHNSON is a 44 year old male with history of pulmonary embolism, multiple DVTs, several femoral stent placements on Lovenox treatment dose at home came to the emergency with complaints of left lower leg swelling and pain. Work-up in the ER indicates acute DVT in the left lower leg, small right-sided pulmonary embolism. Dr. Salazar was consulted she recommended to start on Arixtra at this time. Patient failed with treatment of Lovenox and Pradaxa before. Patient usually follows with the [facility]. Past Medical History Cardiac Medical History: Reports: DVT, Pulmonary Embolism Psychiatric Medical History: Reports: Depression Past Surgical History Past Surgical History: Reports: Vascular Surgery - stents tristan legs r/t DVT Social History Lives with: Family Smoking Status: Former Smoker Electronic Cigarette use?: No Frequency of Alcohol Use: None Hx Recreational Drug Use: No Hx Prescription Drug Abuse: No - Advance Directive Resuscitation Status: Full Code Family History Family History: Reviewed & Not Pertinent Parental Family History Reviewed: Yes - Family history of hypertension. Children Family History Reviewed: Yes Sibling(s) Family History Reviewed.: Yes Medication/Allergy Home Medications: Divalproex Sodium [Depakote ER 500 mg Tab.sr] 500 mg PO Q12 12/07/18 Gabapentin [Neurontin 300 mg Capsule] 300 mg PO Q6 12/07/18 Oxycodone HCl/Acetaminophen [Percocet 5-325 mg Tablet] 1 tab PO Q8HP PRN 12/07/18 Paroxetine HCl [Paxil 20 mg Tablet] 20 mg PO DAILY 12/07/18 Quetiapine Fumarate 200 mg PO QHS 12/07/18 Allergies/Adverse Reactions: No Known Allergies Allergy (Verified 02/15/20 11:16) Review of Systems Constitutional: ABSENT: fatigue, fever(s), headache(s), night sweats, weakness Eyes: ABSENT: visual disturbances Ears: ABSENT: hearing changes Nose, Mouth, and Throat: ABSENT: sore throat Cardiovascular: ABSENT: orthropnea, palpitations Respiratory: ABSENT: dyspnea Gastrointestinal: ABSENT: coffee ground emesis, diarrhea, dysphagia, heartburn Musculoskeletal: PRESENT: other - Planing of left lower leg pain which was severe with pain scale of 10/10. Neurological: ABSENT: abnormal gait, abnormal speech, confusion, dizziness, focal weakness, syncope Psychiatric: ABSENT: anxiety, depression, homidical ideation, suicidal ideation Physical Exam Vital Signs: Temp Pulse Resp BP Pulse Ox 97.5 F 83 16 168/94 H 99 02/15/20 10:11 02/15/20 10:11 02/15/20 10:11 02/15/20 10:11 02/15/20 10:11 Intake & Output 02/14/20 02/15/20 02/16/20 06:59 06:59 06:59 Weight 125.9 kg General appearance: PRESENT: no acute distress, cooperative, well-developed Head exam: PRESENT: atraumatic Eye exam: PRESENT: PERRLA Ear exam: PRESENT: normal external ear exam Mouth exam: PRESENT: moist Neck exam: ABSENT: carotid bruit, JVD, lymphadenopathy, thyromegaly Respiratory exam: PRESENT: decreased breath sounds Cardiovascular exam: PRESENT: RRR. ABSENT: diastolic murmur, rubs, systolic murmur GI/Abdominal exam: PRESENT: normal bowel sounds, soft. ABSENT: distended, guarding, mass, organolmegaly, rebound, tenderness Rectal exam: PRESENT: deferred Extremities exam: PRESENT: full ROM, pedal edema, other - Both lower extremities swollen especially the left lower leg. Neurological exam: PRESENT: alert, awake, oriented to person, oriented to place, oriented to time, oriented to situation, CN II-XII grossly intact. ABSENT: motor sensory deficit Psychiatric exam: PRESENT: appropriate affect, normal mood. ABSENT: homicidal ideation, suicidal ideation Results Laboratory Results: 02/15/20 13:19 02/15/20 13:19 02/15/20 02/15/20 13:19 13:19 WBC 8.5 RBC 4.39 Hgb 13.3 L Hct 38.9 MCV 89 MCH 30.2 MCHC 34.1 RDW 16.8 H Plt Count 238 Seg Neutrophils % 74.1 Sodium 138.5 Potassium 4.1 Chloride 98 Carbon Dioxide 29 Anion Gap 12 BUN 8 Creatinine 0.86 Est GFR ( Amer) > 60 Glucose 116 H Calcium 9.2 Total Bilirubin 0.8 AST 24 Alkaline Phosphatase 100 Total Protein 8.3 H Albumin 4.4 02/15/20 13:19 Troponin I < 0.012 Impressions: Venous Doppler Study 02/15/20 11:23 IMPRESSION: 1. Right common femoral vein vascular stent. Partially occlusive acute on chronic thrombus is seen extending from the saphenous femoral junction through the length of the femoral vein. Superficial thrombosis is noted of the greater and superficial saphenous veins. 2. Acute thrombus is seen extending from the common femoral vein through to the level of the popliteal vein. Nonocclusive thrombus is seen within the peroneal vein and superficial saphenous vein. Chest/Abdomen CTA 02/15/20 11:25 IMPRESSION: 1. Suboptimal contrast bolus. There is a small pulmonary embolism in the right lower lobe pulmonary artery and extending into segmental branches. No large central PE. No definite significant evidence of right heart strain. 2. Mild bilateral opacities likely representing atelectasis. Assessment and Plan - Diagnosis (1) DVT of axillary vein, acute left Is this a current diagnosis for this admission?: Yes Plan: 02/15/2020-patient is good to be admitted to [facility] with a diagnosis of acute DVT in the left lower leg. As per hematology recommendations patient was started on Arixtra. GI prophylaxis initiated. Started on IV morphine 2 mg every 4 hours as needed for pain. (2) Pulmonary embolism Qualifiers: Pulmonary embolism type: unspecified Chronicity: acute Acute cor pulmonale presence: unspecified Qualified Code(s): I26.99 - Other pulmonary embolism without acute cor pulmonale Is this a current diagnosis for this admission?: Yes Plan: 02/15/2020-CT of the chest indicate you have small right-sided pulmonary embolism. Patient has history of PEs before. As mentioned above patient will be started on Arixtra. Pulse ox is 96% room air not on oxygen supplementations denies any chest pains and shortness of breath at the time of my examination. - Time Anticipated Discharge Disposition: Home, Self Care Anticipated Discharge Timeframe: within 72 hours
[2020-02-15] MEDS: PANTOPRAZOLE SODIUM 40 MG TABLET.DR PO SCH (18:10)
[2020-02-15] MEDS ORDERED: HYDROMORPHONE HCL INJ/PF 2 MG/ML AMPULE ONE (22:29)
[2020-02-15] MEDS: FONDAPARINUX SODIUM INJ 10 MG/0.8 ML DISP.SYRIN SUBCUT SCH (22:36)
[2020-02-16] MEDS: HYDROMORPHONE HCL INJ/PF 2 MG/ML AMPULE IV PRN ×3 (02:54→11:08)
[2020-02-16] MEDS ORDERED: LORAZEPAM INJ 2 MG/1 ML VIAL IV ONE (04:30)
[2020-02-16 07:20] LABS: ABSOLUTE BASOPHILS # (AUTO) 0.1 10^3/uL (0.0-0.2); ABSOLUTE LYMPHOCYTES (AUTO) 1.1 10^3/uL (0.5-4.7); ABSOLUTE MONOCYTES (AUTO) 0.4 10^3/uL (0.1-1.4); ABSOLUTE NEUT (AUTO) 6.8 10^3/uL (1.7-8.2); BASOPHILS % (AUTO) 0.6 % (0-2); HEMATOCRIT 35.9 % (37.9-51.0); HEMOGLOBIN 11.9 g/dL (13.5-17.0); LYMPHOCYTES % (AUTO) 13.1 % (13-45); MEAN CORPUSCULAR HGB CONC 33.2 g/dL (32.0-36.0); MEAN CORPUSCULAR VOLUME 90 fl (80-97); MONOCYTES % (AUTO) 4.4 % (3-13); PLATELET COUNT 228 10^3/uL (150-450); RED BLOOD COUNT 3.98 10^6/uL (4.35-5.55); RED CELL DISTRIBUTION WIDTH 17.1 % (11.5-14.0); SEGMENTED NEUTROPHILS % (AUTO) 81.9 % (42-78); TOTAL CELLS COUNTED % (AUTO) 100 %; WHITE BLOOD COUNT 8.3 10^3/uL (4.0-10.5)
[2020-02-16 07:37] VITALS: BP 112/61
[2020-02-16 07:37] LABS: ALBUMIN 3.5 g/dL (3.5-5.0); ALKALINE PHOSPHATASE 80 U/L (38-126); ANION GAP 6 (5-19); ASPARTATE AMINO TRANSFERASE 17 U/L (17-59); BILIRUBIN,DIRECT 0.2 mg/dL (0.0-0.4); BILIRUBIN,TOTAL 0.5 mg/dL (0.2-1.3); BLOOD UREA NITROGEN 10 mg/dL (7-20); CALCIUM 8.8 mg/dL (8.4-10.2); CARBON DIOXIDE 28 mmol/L (22-30); CHLORIDE 103 mmol/L (98-107); CHOLESTEROL 170.87 mg/dL (0-200); GLUCOSE 136 mg/dL (75-110); POTASSIUM 4.5 mmol/L (3.6-5.0); TRIGLYCERIDES 108 mg/dL (<150)
[2020-02-16 07:47] LABS: NT PRO BNP 193 pg/mL (<125)
[2020-02-16 07:48] LABS: DIRECT LDL 103 mg/dL (<100)
[2020-02-16 07:52] LABS: TROPONIN I < 0.012 ng/mL
[2020-02-16] MEDS ORDERED: GABAPENTIN 300 MG CAPSULE PO SCH (10:00)
[2020-02-16] MEDS: PANTOPRAZOLE SODIUM 40 MG TABLET.DR PO SCH (10:08)
[2020-02-16] MEDS: FONDAPARINUX SODIUM INJ 10 MG/0.8 ML DISP.SYRIN SUBCUT SCH (10:15)
--- NOTE | 2020-02-16 11:00 | PDOC DISCHARGE SUMMARY ---
Impression - Admit/DC Date/PCP Admission Date/Primary Care Provider: 02/15/20 18:[facility] Discharge Date: 02/16/20 - Discharge Diagnosis (1) DVT of axillary vein, acute left Is this a current diagnosis for this admission?: Yes (2) Pulmonary embolism Is this a current diagnosis for this admission?: Yes - Assessment Summary: (1) DVT of axillary vein, acute left Is this a current diagnosis for this admission?: Yes Plan: 02/15/2020-patient is good to be admitted to [facility] with a diagnosis of acute DVT in the left lower leg. As per hematology recommendations patient was started on Arixtra. GI prophylaxis initiated. Started on IV morphine 2 mg every 4 hours as needed for pain. 02/16/2020-patient is advised to restart on Lovenox treatment dose and he has enough supply at home. Patient is in a prescription for increased dose of gabapentin, oxycodone for 3-day supply. Patient is advised to follow-up with the PCP at [place] next week. (2) Pulmonary embolism Qualifiers: Pulmonary embolism type: unspecified Chronicity: acute Acute cor pulmonale presence: unspecified Qualified Code(s): I26.99 - Other pulmonary embolism without acute cor pulmonale Is this a current diagnosis for this admission?: Yes Plan: 02/15/2020-CT of the chest indicate you have small right-sided pulmonary emb olism. Patient has history of PEs before. As mentioned above patient will be started on Arixtra. Pulse ox is 96% room air not on oxygen supplementations denies any chest pains and shortness of breath at the time of my examination. 02/16/2020-pulse oxes 93% room air. Not in distress. Comfortably in the bed communicating well. Patient is advised to continue Lovenox treatment at home and follow-up with the [facility] and [place] in 1 to 2 weeks. - Additional Information Resuscitation Status: Full Code Discharge Diet: Cardiac Discharge Activity: Activity As Tolerated Referrals: [facility] [Primary Care Provider] - 02/16/20 10:36 am (THE [place] WILL CONTACT THE PATIENT WITH A FOLLOW UP APPT.) Prescriptions: Doxycycline Hyclate 100 mg PO BID 7 Days #14 tablet. Gabapentin 600 mg PO QID 30 Days #120 tablet Oxycodone HCl/Acetaminophen [Percocet 7.5-325 mg Tablet] 1 tab PO QID 3 Days #12 Pantoprazole Sodium [Protonix [address] Tablet] 40 mg PO BID 30 Days #60 tablet. Home Medications: Doxycycline Hyclate 100 mg PO BID 7 Days #14 tablet. 02/16/20 Gabapentin 600 mg PO QID 30 Days #120 tablet 02/16/20 Oxycodone HCl/Acetaminophen [Percocet 7.5-325 mg Tablet] 1 tab PO QID 3 Days #12 02/16/20 Pantoprazole Sodium [Protonix [address] Tablet] 40 mg PO BID 30 Days #60 tablet. 02/16/20 History of Present Illiness History of Present Illness: ALESSIO JOHNSON is a 44 year old male with history of pulmonary embolism, multiple DVTs, several femoral stent placements on Lovenox treatment dose at home came to the emergency with complaints of left lower leg swelling and pain. Work-up in the ER indicates acute DVT in the left lower leg, small right-sided pulmonary embolism. Dr. Salazar was consulted she recommended to start on Arixtra at this time. Patient failed with treatment of Lovenox and Pradaxa before. Patient usually follows with the [facility]. Hospital Course Hospital Course: 44 year old male with history of pulmonary embolism, multiple DVTs, several femoral stent placements on Lovenox treatment dose at home came to the emergency with complaints of left lower leg swelling and pain. Work-up in the ER indicates acute DVT in the left lower leg, small right-sided pulmonary embolism. Dr. Salazar was consulted she recommended to start on Arixtra at this time. Patient failed with treatment of Lovenox and Pradaxa before. Patient usually follows with the [facility]. 02/[id number]-old male with history of pulmonary embolism, multiple bilateral lower extremity DVTs, history of several femoral stent placements admitted for left lower leg pain and swelling. Patient was started rehab etc. as per hematology recommendations. Patient was also started on Dilaudid, resume home medications. Dr. Huizar spoke to me this morning and her recommendation is to restart Lovenox treatment dose, to start on antibiotic therapy, increase the dose of gabapentin and she also advised that patient can be safely discharged. [facility] Physical Exam Vital Signs: Temp Pulse Resp BP Pulse Ox 98.1 F 76 10 L 112/61 93 02/16/20 10:00 02/16/20 07:35 02/16/20 07:35 02/16/20 07:35 02/16/20 07:35 Intake & Output 02/15/20 02/16/20 02/17/20 06:59 06:59 06:59 Output Total 150 Balance -150 Weight 125.9 kg General appearance: PRESENT: no acute distress, well-developed Head exam: PRESENT: atraumatic Eye exam: PRESENT: PERRLA Mouth exam: PRESENT: moist, tongue midline Neck exam: ABSENT: carotid bruit, JVD, lymphadenopathy, thyromegaly Respiratory exam: PRESENT: decreased breath sounds Cardiovascular exam: PRESENT: RRR. ABSENT: diastolic murmur, rubs, systolic murmur GI/Abdominal exam: PRESENT: normal bowel sounds, soft. ABSENT: distended, guarding, mass, organolmegaly, rebound, tenderness Rectal exam: PRESENT: deferred Extremities exam: PRESENT: full ROM. ABSENT: calf tenderness, clubbing, pedal edema Neurological exam: PRESENT: alert, awake, oriented to person, oriented to place, oriented to time, oriented to situation, CN II-XII grossly intact. ABSENT: motor sensory deficit Psychiatric exam: PRESENT: appropriate affect, normal mood. ABSENT: homicidal ideation, suicidal ideation Results Laboratory Results: WBC 8.3 10^3/uL (4.0-10.5) 02/16/20 06:53 RBC 3.98 10^6/uL (4.35-5.55) L 02/16/20 06:53 Hgb 11.9 g/dL (13.5-17.0) L 02/16/20 06:53 Hct 35.9 % (37.9-51.0) L 02/16/20 06:53 MCV 90 fl (80-97) 02/16/20 06:53 MCH 30.0 pg (27.0-33.4) 02/16/20 06:53 MCHC 33.2 g/dL (32.0-36.0) 02/16/20 06:53 RDW 17.1 % (11.5-14.0) H 02/16/20 06:53 Plt Count 228 10^3/uL (150-450) 02/16/20 06:53 Lymph % (Auto) 13.1 % (13-45) 02/16/20 06:53 [place] % (Auto) 4.4 % (3-13) 02/16/20 06:53 Eos % (Auto) 0.0 % (0-6) 02/16/20 06:53 Baso % (Auto) 0.6 % (0-2) 02/16/20 06:53 Absolute Neuts (auto) 6.8 10^3/uL (1.7-8.2) 02/16/20 06:53 Absolute Lymphs (auto) 1.1 10^3/uL (0.5-4.7) 02/16/20 06:53 Absolute Monos (auto) 0.4 10^3/uL (0.1-1.4) 02/16/20 06:53 Absolute Eos (auto) 0.0 10^3/uL (0.0-0.6) 02/16/20 06:53 Absolute Basos (auto) 0.1 10^3/uL (0.0-0.2) 02/16/20 06:53 Seg Neutrophils % 81.9 % (42-78) H 02/16/20 06:53 PT 14.4 SEC (11.4-15.4) 02/15/20 13:19 INR 1.09 02/15/20 13:19 APTT 42.0 SEC (23.5-35.8) H 02/15/20 13:19 Sodium 137.1 mmol/L (137-145) 02/16/20 06:53 Potassium 4.5 mmol/L (3.6-5.0) 02/16/20 06:53 Chloride 103 mmol/L (98-107) 02/16/20 06:53 Carbon Dioxide 28 mmol/L (22-30) 02/16/20 06:53 Anion Gap 6 (5-19) 02/16/20 06:53 BUN 10 mg/dL (7-20) 02/16/20 06:53 Creatinine 0.80 mg/dL (0.52-1.25) 02/16/20 06:53 Est GFR ( Amer) > 60 (>60) 02/16/20 06:53 Est GFR (MDRD) Non-Af > 60 (>60) 02/16/20 06:53 Glucose 136 mg/dL (75-110) H 02/16/20 06:53 Hemoglobin A1c % 4.7 % (4.7-6.0) 02/16/20 06:53 Calcium 8.8 mg/dL (8.4-10.2) 02/16/20 06:53 Magnesium 1.8 mg/dL (1.6-2.3) 02/16/20 06:53 Total Bilirubin 0.5 mg/dL (0.2-1.3) 02/16/20 06:53 Direct Bilirubin 0.2 mg/dL (0.0-0.4) 02/16/20 06:53 Neonat Total Bilirubin Not Reportable 02/16/20 06:53 Neonat Direct Bilirubin Not Reportable 02/16/20 06:53 Neonat Indirect Bili Not Reportable 02/16/20 06:53 AST 17 U/L (17-59) 02/16/20 06:53 ALT 9 U/L (<50) 02/16/20 06:53 Alkaline Phosphatase 80 U/L (38-126) 02/16/20 06:53 Troponin I < 0.012 ng/mL 02/16/20 06:53 NT-Pro-B Natriuret Pep 193 pg/mL (<125) H 02/16/20 06:53 Total Protein 7.0 g/dL (6.3-8.2) 02/16/20 06:53 Albumin 3.5 g/dL (3.5-5.0) 02/16/20 06:53 Triglycerides 108 mg/dL (<150) 02/16/20 06:53 Cholesterol 170.87 mg/dL (0-200) 02/16/20 06:53 LDL Cholesterol Direct 103 mg/dL (<100) H 02/16/20 06:53 VLDL Cholesterol 22.0 mg/dL (10-31) 02/16/20 06:53 HDL Cholesterol 49 mg/dL (>40) 02/16/20 06:53 TSH 0.55 uIU/mL (0.47-4.68) 02/16/20 06:53 02/15/20 02/16/20 13:19 06:53 Troponin I < 0.012 < 0.012 NT-Pro-B Natriuret Pep 193 H Impressions: Venous Doppler Study 02/15/20 11:23 IMPRESSION: 1. Right common femoral vein vascular stent. Partially occlusive acute on chronic thrombus is seen extending from the saphenous femoral junction through the length of the femoral vein. Superficial thrombosis is noted of the greater and superficial saphenous veins. 2. Acute thrombus is seen extending from the common femoral vein through to the level of the popliteal vein. Nonocclusive thrombus is seen within the peroneal vein and superficial saphenous vein. Chest/Abdomen CTA 02/15/20 11:25 IMPRESSION: 1. Suboptimal contrast bolus. There is a small pulmonary embolism in the right lower lobe pulmonary artery and extending into segmental branches. No large central PE. No definite significant evidence of right heart strain. 2. Mild bilateral opacities likely representing atelectasis. Plan Time Spent: Greater than 30 Minutes Stroke Is this a Stroke Patient?: No Acute Heart Failure Is this a Heart Failure Patient?: No
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
--- NOTE | 2020-02-16 17:56 | EKG REPORT ---
SEVERITY:- NORMAL ECG - SINUS RHYTHM : Confirmed by: Pal Hall MD 16-Feb-2020 17:55:17
== END 2020-02-16 11:26 | disposition home or self-care (01) | DRG 299 ==
LOC: ER 10:06 → EH 18:39 → 5TH 21:41
PROVIDERS: ADMIT Internal Medicine; ATTEND Internal Medicine
DX: I82.4Z2 Acute embolism and thrombosis of unspecified deep veins of left distal lower extremity (principal); I26.99 Other pulmonary embolism without acute cor pulmonale; F32.9 Major depressive disorder, single episode, unspecified; Z86.718 Personal history of other venous thrombosis and embolism; Z79.01 Long term (current) use of anticoagulants; Z95.5 Presence of coronary angioplasty implant and graft; Z87.891 Personal history of nicotine dependence; Z95.828 Presence of other vascular implants and grafts; G89.29 Other chronic pain; M54.9 Dorsalgia, unspecified
CPT/HCPCS: 36415; 71275; 80053; 80061; 83036; 83735; 83880; 84443; 84484; 85025; 85610; 85730; 93005; 93010; 93970; 96372; 96374; 96375; 96376; 99285; J1100; J1170; J1644; J1652; J2060; J2270; J2405; J3490